=== PATIENT | female | born 1990 | race Caucasian/White ===

== ENCOUNTER 2024-08-14 13:30 | Emergency (ER) | payer OTHER, SELFPAY ==
--- NOTE | 2024-08-14 14:05 | EDPHYS ---
Physician Documentation [facility] Name: Rere Rouse Age: 34 yrs Sex: Female : 1990 Arrival Date: 08/14/2024 Time: 13:30 Bed IW3 Private MD: ED Physician César Gomez HPI: 08/14 14:01 This 34 yrs old Female presents to ER via Unassigned with complaints of Headache - and kb work note. 14:01 Pt is a 34 year old female who presents for headache that started 4 days ago. States kb she had vomiting and diarrhea as well, but that has resolved. States she missed work yesterday and today so she came in to get a note. Reports headache comes and goes. Denies visual changes, dizziness, chest pain. Reports daughter had vomiting and diarrhea as well. 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 - Infectious Disease History:: Denies. - Social history:: Smoking status: unknown. ROS: 14:01 Constitutional: As per HPI kb Exam: 14:03 Constitutional: This is a well developed, well nourished patient who is awake, alert, kb and in no acute distress. Head/Face: Normocephalic, atraumatic. ENT: Moist Mucous membranes Cardiovascular: Regular rate Respiratory: Respirations even and unlabored. No increased work of breathing. Talking in full sentences Abdomen/GI: Soft, non-tender. No distention Skin: Warm, dry with normal turgor. Normal color. MS/ Extremity: Pulses equal, no cyanosis. Neurovascular intact. Full, normal range of motion. Neuro: Awake and alert, GCS 15, oriented to person, place, time, and situation. Vital Signs: 14:29 BP 107 / 71; Pulse 72; Resp 18; Temp 99.1(O); Pulse Ox 99% on R/A; Pain 9/10; cm10 14:29 Pain Scale: Adult cm10 [place] Coma Score: 14:03 Eye Response: spontaneous(4). Motor Response: obeys commands(6). Verbal Response: kb oriented(5). Total: 15. MDM: 13:34 Medical Screening Exam initiated kb 14:03 Differential diagnosis: migraine, viral illness, dehydration, electrolyte abnormality. kb Data reviewed: vital signs, nurses notes. Test considered but Not performed: Labs: cbc, cmp considered but pt states she prefers a shot for the headache and to go home. States she will hydrate at home, just needs a note. Counseling: I had a detailed discussion with the patient and/or guardian regarding the historical points, exam findings, and any diagnostic results supporting the discharge/admit diagnosis, the need for outpatient follow up, a family practitioner, to return to the emergency department if symptoms worsen or persist or if there are any questions or concerns that arise at home. Administered Medications: 14:29 Drug: Ketorolac IM 30 mg IM once Route: IM; Site: right vastus lateralis; cm10 14:33 Follow up: Response: Medication administered at discharge. cm10 Disposition Summary: 08/14/24 14:04 Discharge Ordered Notes: Location: Home kb Condition: Stable kb Diagnosis - Headache kb - Encounter for issue of other medical certificate - work note kb Followup: kb - With: Emergency Department - When: As needed - Reason: Worsening of condition Followup: kb - With: Private Physician - When: 2 - 3 days - Reason: Recheck today's complaints, Continuance of care, Re-evaluation by your physician Discharge Instructions: - Discharge Summary Sheet kb - General Headache Without Cause, [id number] kb Forms: - Work release form kb - Medication Reconciliation Form kb - Antibiotic Education kb - Prescription Opioid Use kb - Patient Portal Instructions kb - Leadership Thank You Letter kb Signatures: Tena Wing FNP-C FNP-Ckb Martinez, Clarissa, RN RN cm10 Corrections: (The following items were deleted from the chart) 14:03 14:01 Pt is a 34 year old female who presents for headache that started 4 days ago. kb States she had vomiting and diarrhea as well, but that has resolved. States she missed work yesterday and today so she came in to get a note. Reports headache comes and goes. Denies visual changes, dizziness, chest pain. . kb
[2024-08-14] MEDS ORDERED: KETOROLAC 30 MG/ML INJ ONE (14:22)
--- NOTE | 2024-08-14 14:34 | ER ---
Nurse's Notes [facility] Name: Rere Rouse Age: 34 yrs Sex: Female : 1990 Arrival Date: 08/14/2024 Time: 13:30 Bed IW3 Private MD: Diagnosis: Headache;Encounter for issue of other medical certificate-work note Presentation: 08/14 14:29 Chief complaint: Patient states: Intermittent headache over the last 3 days. Pt states cm10 that coughing makes the pain worse. Coronavirus screen: Client denies travel out of the [place] in the last 14 days. Ebola Screen: Patient denies travel to an Ebola-affected area in the 21 days before illness onset. No symptoms or risks identified at this time. Initial Sepsis Screen: Does the patient meet any 2 criteria? No. Patient's initial sepsis screen is negative. Does the patient have a suspected source of infection? No. Patient's initial sepsis screen is negative. Risk Assessment: Do you want to hurt yourself or someone else? Patient reports no desire to harm self or others. Onset of symptoms was August 14, 2024. 14:29 Method Of Arrival: Ambulatory cm10 14:29 Acuity: ROBER 3 cm10 Triage Assessment: 14:31 Headache History: The patient has had previous headaches. General: Appears in no cm10 apparent distress. comfortable, Behavior is calm, cooperative. Pain: Complains of pain in head Pain currently is 9 out of 10 on a pain scale. Pain began 2-3 days ago. Also complains of no other associated symptoms. Neuro: No deficits noted. Level of Consciousness is awake, alert, obeys commands, Oriented to person, place, time, situation, Appropriate for age Reports headache. 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 - Infectious Disease History:: Denies. - Social history:: Smoking status: unknown. Screenin:31 [facility] ED Fall Risk Assessment (Adult) History of falling in the last 3 months, cm10 including since admission No falls in past 3 months (0 pts) Confusion or Disorientation No (0 pts) Intoxicated or Sedated No (0 pts) Impaired Gait No (0 pts) Mobility Assist Device Used No (0 pt) Altered Elimination No (0 pt) Score/Fall Risk Level 0 - 2 = Low Risk Oriented to surroundings, Maintained a safe environment, Hourly rounding (assess needs \T\ fall precautionary measures) done. Abuse screen: Denies threats or abuse. Denies injuries from another. Nutritional screening: No deficits noted. Tuberculosis screening: No symptoms or risk factors identified. Vital Signs: 14:29 BP 107 / 71; Pulse 72; Resp 18; Temp 99.1(O); Pulse Ox 99% on R/A; Pain 9/10; cm10 14:29 Pain Scale: Adult cm10 [place] Coma Score: 14:03 Eye Response: spontaneous(4). Motor Response: obeys commands(6). Verbal Response: kb oriented(5). Total: 15. ED Course: 13:33 Patient arrived in ED. ra3 13:34 Tena Wing FNP-C is [facility]. kb 13:34 César Gomez MD is Attending Physician. kb 14:30 Triage completed. cm10 14:31 Arm band placed on right wrist. Patient placed in waiting room. cm10 14:31 Patient has correct armband on for positive identification. Provided Education on: cm10 Follow-up instructions. Cardiac monitoring not applicable on this patient. 14:32 No provider procedures requiring assistance completed. Patient did not have IV access cm10 during this emergency room visit. Administered Medications: 14:29 Drug: Ketorolac IM 30 mg IM once Route: IM; Site: right vastus lateralis; cm10 14:33 Follow up: Response: Medication administered at discharge. cm10 Medication: 14:31 VIS not applicable for this client. cm10 Outcome: 14:04 Discharge ordered by . kb 14:32 Discharged to home ambulatory, cm10 14:32 Condition: good 14:32 Discharge instructions given to patient, Instructed on discharge instructions, follow up and referral plans. Demonstrated understanding of instructions, follow-up care, 14:33 Patient left the ED. cm10 Signatures: Tena Wing FNP-C FNP-Ckb Martinez, Clarissa, RN RN cm10 Alis Ventura ra3
[2024-08-14 14:39] VITALS: BP 107/71; TEMP 99.1; O2SAT 99
== END 2024-08-14 14:33 | disposition home or self-care (01) ==
LOC: ER 13:30
DX: R51.9 Headache, unspecified (principal); Z02.79 Encounter for issue of other medical certificate
CPT/HCPCS: 96372; 99284

== ENCOUNTER 2025-01-10 10:14 | Emergency (ER) | payer OTHER, SELFPAY ==
--- OUTSIDE RECORDS SUMMARY | 2025-01-10 10:21 | XMS REPORT | Continuity of Care Document ---
Author Name Unknown Address [address] [facility] [place] [address] [facility] Address [address] [place] [address] Care Team Providers Care Investigations Consultant Name Role Phone KENDAL SHERIDAN Primary Care Physician Dilip Vasquez Attending Clinician Unavailable Hillary Rodriguez Attending Clinician Madai Dewey Spence Attending Clinician Unavailable Jalil Juan Attending Clinician Unavailable KENDAL SHERIDAN Attending Clinician UnavailChelsy Flores Attending Clinician Unavailable Kendal Yu Attending Clinician [phone] [facility] Admitting Clinician Unavaila ble Physician, No Primary or Family Admitting Clinic cha Unavailable Payers Payer Name Policy Type Policy Number Effective Date Expirati on Date Source Problems Condition Name Condition Details Condition Category Status Onset Date Resolution Date Last Treatment Date Treating Clinician Comments Source ASCUS with positive high risk HPV cervical ASCUS with positive high risk HPV cervical Disease Active 2017-10 0 00:00: 00 Overview: No LEATHA noted. Will need co-testin g repeat in 12 months (06/2019). [facility] BMI 39.0-39.9, adult BMI 39.0-39.9, adult Disease Active 06-22 00:00: 00 [facility] Allergies, Adverse Reactions, Alerts Allergy Name Allergy Type Status Severity Reaction(s) Onset Date Inactive Date Treating Clinician Comments Source No Known Allergie s DA Active U 2020-10 00:00: 00 [facility] No Known Allergie s DA Active U 11-29 00:00: [address] [facility] NO KNOWN ALLERGIE S Drug Class Active [facility] Social History Social Habit Start Date Stop Date Quantity Comments Source History of tobacco use 1998-06-22 00:00:00 Cigarette Smoker [facility] Sex Assigned At [facility] Cigarettes smoked current (pack per day) - Reported 2018-09-21 00:00:00 2018-09-21 00:00:00 [facility] Alcohol intake 2018-09-21 00:00:00 2018-09-21 00:00:00 [facility] Alcohol Comment 2018-06-22 00:00:00 2018-06-22 00:00:00 social [facility] Smoking Status Start Date Stop Date Source Current every day smoker 2018-09-21 00:00:00 [facility] Medications Ordered Medication Name Filled Medication Name Start Date Stop Date Current Medication? Ordering Clinician Indication Dosage Frequency Signature (SIG) Comments Components Source albuterol (PROAIR HFA) 90 mcg/actuati on inhaler 2017-10 00:00: 00 Yes [id number] 2{puff} Inhale 2 Puffs every 4 (four) hours as needed for Wheezing or Shortness of Breath. [facility] Encounters Start Date/Time End Date/Time Encounter Type Admission Type Attending Clinicians Care Facility Care Department Encounter ID Source 2022-11-13 07:38:00 2022-11-13 07:47:00 Emergency EM Dilip Terry [facility] [id number] 12 [facility] 2022-09-11 08:40:00 2022-09-11 09:52:00 Emergency EM Hillary Rodriguez [facility] [id number] 68 [facility] 2022-08-09 11:41:48 2022-08-09 11:41:48 Outpatient [facility] [id number] Alexi Weber 2022-02-21 12:43:00 2022-02-21 15:24:00 Emergency EM Dewey Priest [facility] AERS [id number] 63 [facility] 2022-02-21 12:43:00 2022-02-21 15:24:00 Emergency EM Dewey Priest [facility] [id number] [facility] 2021-10-25 15:39:00 2021-10-25 16:30:00 Emergency EM Jalil Juan [facility] AERS [id number] [facility] 2021-10-15 13:00:00 2021-10-15 13:00:00 Outpatient KENDAL JO [facility] [id number] [facility] 2021-09-09 10:31:00 2021-09-09 11:06:00 Emergency EM Jalil Juan [facility] [id number] 86 [facility] 2021-08-13 13:00:00 2021-08-13 13:00:00 Outpatient KENDAL JO [facility] [id number] [facility] 2021-06-19 13:00:00 2021-06-19 13:00:00 Outpatient KENDAL SHERIDAN [facility] [id number] [facility] 2021-05-27 09:38:00 2021-05-27 13:40:00 Emergency EM Chelsy Church [facility] [id number] [facility] 2020-04-04 00:00:00 2020-04-04 00:00:00 Telephone Kendal Sheridan [facility] RETAIL ASSISTANT MANAGER [facility] [id number] [facility] 2020-04-04 00:00:00 2020-04-04 00:00:00 Telephone Kendal Sheridan [facility] RET[employer] ASSISTANT MANAGER [facility] [id number] Results Test Description Test Time Test Comments Results Resul t Comments Source BREAST ULTRASOUND BILATERAL 2022-06-03 15:39:29 Name: Zurdo : 1990 Sex: F - BREAST ULTRASOUND BILATERALCOMPLETE ULTRASOUND OF BOTH BREASTS AND AXILLA: 2CLINICAL: Bilateral breast pain. Comparison is made to exam dated 06/03/2022 mammogram - [facility]. Color flow and real-time ultrasound of both breasts four quadrants, retroareolar, and axilla regions and clinical breast exam performed. No significant abnormalities were seen sonographically in either breast or either axilla. Clinical breast exam unremarkable. IMPRESSION: NEGATIVE There is no sonographic evidence of malignancy. Resume annual screening mammography in one year. (06/04/2023) Rachel Gill M.D. dm/:06/03/2022 15:39:29 Entry: bb - 06/03/2022 19:32:36Imaging Technologist: Kate GARCIA, [facility] sent: BIRADS 1-2 Combo FU Letter Ultrasound BI-RADS: 1 Negative DIAG MAMM BILATERAL SAMM CAD DIGITAL 2022-06-03 15:38:12 Name: Zurdo : 1990 Sex: F - DIAG MAMM BILATERAL SAMM CAD DIGITALBILATERAL FIRST EVER DIGITAL DIAGNOSTIC MAMMOGRAM 3D/2D WITH CAD: 06/03/2022LINICAL: Family history of breast cancer. Bilateral breast pain, nipple itching and discoloration. Digital breast tomosynthesis was performed in addition to routine CC and MLO views. Current mammographic images were evaluated by [employer] CAD (computer-aided detection) software. No prior exams were available for comparison. The tissue of both breasts is predominantly fatty. No suspicious mass, architectural distortion, malignant type calcification, or lymph node abnormality detected. IMPRESSION: BENIGNBilateral ultrasound pending for additional evaluation. There is no mammographic evidence of malignancy. Rachel mejia/caio:06/03/2022 15:38:12 Entry: bb - 06/03/2022 19:32:20Imaging Technologist: Shyann GARCIA, [facility] BI-RADS: [address]/NG, TMA, [id number] 17:33:19* Test Item Value Reference Range Interpretation Comme nts GONORRHEA, TMA (test code = 55809) NEGATIVE NEGATIVE Assay methodolog y is nucleic acid amplification by loading unit tool setter mediated amplification (TMA) utilizing the Aptima Combo 2 Assay. CHLAMYDIA, TMA (test code = 27487) NEGATIVE NEGATIVE Assay methodolog y is nucleic acid amplification by loading unit tool setter mediated amplification (TMA) utilizing the Aptima Combo 2 Assay. UNLESS OTHERWISE INDICATED, ALL TESTING PERFORMED [facility] [address] [place] [address] SIGNAL TOWER OPERATOR: IVANIA YUSUF M.D. [place] NUMBER [id number] [facility] [place]. [id number] HPV HIGH RISK WITH GENOTYPE, [id number] 15:05:16* Test Item Value Reference Range Interpretation Comme nts HPV HIGH RISK INTERP (test code = 87824) NEGATIVE NEGATIVE HPV 16 (test code = 64571) NEGATIVE HPV 18 (test code = 90837) NEGATIVE HPV, HR, OTHER GENOTYPES (test code = 71829) NEGATIVE Testing methodol ogy is real-time PCR utilizing hydrolysis probes with the Reid Derrick 4800 system. The test individually detects genotypes 16 and 18, as well as the other 12 high risk types (31,33,35,39,45,51,52,56 ,58,59,66,68). The expected result is negative. A negative result does not rule out the presence of HPV not included in the genotype set, a low level of infection or specimen sampling error. CBC W/AUTO [id number] 14:13:00* Test Item Value Reference Range Interpretation Comme nts WHITE BLOOD CELL (test code = WBC) 8.4 K/uL 3.5-11.0 N RED BLOOD CELL (test code = RBC) 3.94 M/uL 3.54-5.02 N HEMOGLOBIN (test code = HGB) 13.1 GM/DL 11.0-15.0 N HEMATOCRIT (test code = HCT) 36.6 % 37.0-47.0 L MEAN CELL VOLUME (test code = MCV) 92.9 fL 81.0-99.0 N MEAN CELL HGB (test code = MCH) 33.2 pg 27.0-31.0 H MEAN CELL HGB CONCETRATION ( test code = MCHC) 35.8 GM/DL 33.0-37.0 N RED CELL DISTRIBUTION WIDTH CV (test code = RDW) 13.8 % 11.5-14.5 N PLATELET COUNT (test code = PLT) 228 K/mm3 150-400 N MEAN PLATELET VOLUME (test c ode = MPV) 10.3 FL 8.8-13.1 N NEUTROPHIL % (test code = NT%) 71.2 % 40.0-76.0 N LYMPHOCYTE % (test code = LY%) 21.8 % 15.0-40.0 N MIXED % (test code = MX%) 7.0 % 3.0-15.0 N NEUTROPHIL # (test code = NT#) 6.0 K/uL 1.8-7.6 N LYMPHOCYTE # (test code = LY#) 1.8 K/uL 1.0-3.8 N MIXED # (test code = MX#) 0.6 k/mm3 0.1-0.8 N TROPONIN-I [id number] 13:36:00* Test Item Value Reference Range Interpretation Comme nts TROPONIN-I RAPID (test code = TROPIRAP) 0.00 ng/mL 0.00-0.08 N Performed by cer tified foreman or supervisor and operator at [facility] Negative: <= 0.08 Positive: >= 0.09An elevated troponin value alone is not sufficient todiagnose a myocardial infarction. Rather, the patient sclinical presentation (history, physical exam) and ECGshould be used in conjunction with troponin in thediagnostic evaluation of suspected myocardial infarction. Aserial sampling protocol is recommended to facilitate the identification of temporal changes in troponin levels characteristic of [place]. LIVER [id number] 13:34:00* Test Item Value Reference Range Interpretation Comme nts TOTAL PROTEIN (test code = PROT) 5.7 GM/DL 5.0-8.0 N Performed by certified foreman or supervisor and operator at [facility] ALBUMIN (test code = ALB) 3.2 g/dL 3.4-5.0 L BILIRUBIN TOTAL (test code = BILT) 0.5 MG/DL 0.0-1.0 N SGOT/AST (test code = AST) 16 IUnit/L 15-37 N SGPT/ALT (test code = ALT) 22 IUnit/L 30-65 L GAMMA GLUTAMYL TRANSPEPTIDASE (test code = GGT) 15 UNITS/L 5-85 N ALKALINE PHOSPHATASE TOTAL (test code = ALKP) 66 IUNIT/L 20-125 N AMYLASE (test code = SHIRLEY) 32 UNITS/L 25-125 N BASIC METABOLIC [id number] 13:24:00* Test Item Value Reference Range Interpretation Comme nts SODIUM (test code = NA/ABG) 142 MEQ/L 134-147 N POTASSIUM (test code = K/ABG) 3.7 MEQ/L 3.4-5.0 N CHLORIDE (test code = CL/ABG) 104 MEQ/L 100-108 N CREATININE ABG (test code = CREAABG) 0.8 mg/dL 0.6-1.0 N POC IONIZED CALCIUM (test co de = POCCA) 1.17 MMOL/L 1.12-1.32 N POC GLUCOSE (test code = POCGLU) 111 MG/DL Novel Coronavirus [id number] 13:28:00* Test Item Value Reference Range Interpretation Comme nts Novel Coronavirus 2019 Inhouse (test code = [id number]) Negative Negative Positive resul ts are indicative of the presence teNFLM-LxM-8 RNA, clinical correlation with patient historyand other diagnostic information is necessary to determinepatient infection status. Positive results do not rule outbacterial infection or co-infection with other viruses. Negative results do not preclude SARS-CoV-2 infection andshould not be used as the sole basis for patient managementdecisions. Negative results must be combined with otherclinical observations, patient history, and epidemiologicalinformation . Detection of SARS-CoV-2 RNA may be affected bysample collection methods, storage conditions, and/or stageof infection. Viral RNA mutations, vaccinations, antiviraltherapeutics, antibiotics, chemotherapeutic orimmunosuppressant drugs have not been evaluated for effectson detection. Results are for the identification of SARS-CoV-2 RNA usingreal-time (RT) polymerase chain reaction (PCR) technologyfor the qualitative detection of nucleic acids from gmlXZMU-YtP-1 virus and diagnosis of SARS-CoV-2 virusinfection. It is an Emergency Use Authorization (EUA) testauthorized by the U.S. FDA. INFLUENZA A B [id number] 16:17:00* Test Item Value Reference Range Interpretation Comme nts INFLUENZA A POC (test code = INFLAAG) NEGATIVE NEGATIVE INFLUENZA B POC (test code = INFLBAG) NEGATIVE NEGATIVE Performed by rony wayne foreman or supervisor and operator at [facility] Influenza A&B assay is a rapid molecular in vitro diagnostic test utilizing an isothermal nucleic acidamplification technology for the qualitative detectionand discrimination of influenza A and B viral RNA. AG STREP GROUP A (THROAT)2021-10-25 16:12:00* Test Item Value Reference Range Interpretation Comme nts AG STREP GROUP A (THROAT) (test code = STREPA) NEGATIVE Negative Performed by rony king at [facility] Strep-A is a rapid, instrument-based, molecular invitro diagnostic test utilizing isothermal nucleic acidamplification technology for the qualitative detection ofStreptococcus pyogenes - XR CHEST 2 [id number] 00:00:00 [facility] 1990 Sex: F FAX: Jalil Juan MD [place]: [place] St: PRE Name: VICZURDO Rafael FSED : 1990 Age/S: 31/F [address] [facility] Unit #: [id number] Loc: [place] [address] Phys: Jalil Juan MD Acct: [id number] Dis Date: Status: PRE ER PHONE #: Exam Date: 10/25/2021 1610 FAX #: Reason: COUGH DYSPNEA EXAMS: CPT CODE: [id number] XR CHEST 2 V 75626 PROCEDURE INFORMATION: Exam: XR Chest Exam date and time: 10/25/2021 3:55 PM Age: 31 years old Clinical indication: Cough; Additional info: Cough dyspnea TECHNIQUE: Imaging protocol: XR of the chest. Views: 2 views. PA and Lateral COMPARISON: CR XR CHEST 2 V 11/29/2014 1:27 PM FINDINGS: Lungs: There are normal lung volumes without consolidation or interstitial oppacities. Ple ural spaces: Unremarkable. No pleural effusion. No pneumothorax. Heart/Mediastinum: The heart size is normal. The pulmonary vasculature is normal. The mediastinal contour is normal. The trachea is midline. Bones/joints: No acute abnormality seen. IMPRESSION: No acute cardiopulmonary findings Elec tronically Signed by Loc Olivo on 10/25/2021 at 1618 Reported and signed by: Alexi Olivo M.D. CC: Jalil Juan MD Technologist: Kulwant Covington, RT(R)(CT) Trnscrd Date/Time/By: 10/25/2021 (697) : By: ErnieL Orig Print D/T: S: 10/25/2021 (6710) PAGE 1 Signed ReportBASIC METABOLIC [id number] 10:13:00* Test Item Value Reference Range Interpretation Comme nts SODIUM (test code = NA/ABG) 138 MEQ/L 134-147 N POTASSIUM (test code = K/ABG) 4.1 MEQ/L 3.4-5.0 N CHLORIDE (test code = CL/ABG) 101 MEQ/L 100-108 N CREATININE ABG (test code = CREAABG) 0.8 mg/dL 0.6-1.0 N POC IONIZED CALCIUM (test co de = POCCA) 1.19 MMOL/L 1.12-1.32 N POC GLUCOSE (test code = POCGLU) 92 MG/DL - DUP VEIN UNI/[id number] 00:00:00 [facility] : 1990 Sex: F Name: UZRDO HANKINS [place] : 1990 Age/S: 31 / F [address] [place] [address] Unit #: [id number] Loc: [place] [address] Phys: Chelsy Church MD Acct: [id number] Dis Date: Status: REGER PHONE #: [phone] Exam Date: 05/27/2021 [facility] FAX #: [phone] Reason: acute R calf pain EXAMS: CPT CODE: [id number] DUP VEIN UNI/LTD 93732 PROCEDURE INFORMATION: Exam: US Duplex Right Lower Extremity Veins, Limited Exam date and time: 05/27/2021 12:22 PM Age: 31 years old Clinical indication: Pain; Leg, lower; Right; Additional info: Acute R calf pain TECHNIQUE: Imaging protocol: Real-time Duplex ultrasound of the Right Lower Extremity with 2-D lay scale, color Doppler flow and spectral waveform analysis with image documentation. Limited exam was focused on the right lower extremity veins. COMPARISON: No relevant prior studies available. FINDINGS: Right deep veins: The common femoral, femoral, popliteal, visualized calf and ankle veins are patent without thrombus. Right superficial veins: Unremarkable. Saphenofemoral junction is patent without thrombus. Soft tissues: Unremarkable. IMPRESSION: No evidence of deep vein thrombosis. at 1236 Reported and signed by: Roxane Pablo D.O. CC: Chelsy Church MD Technologist: Cassandra Vincent RDMS(AB)(OB) Trnscb Date/Time: 05/27/2021 (1236) [email or web address] PAGE 1 Signed Report - CT HEAD/BRAIN W/O [id number] 16:14:00Name: ZURDO HANKINS [place] : 1990 Age/S: 29 / F [address] [facility] Unit #: [id number] Loc: [place] [address] Phys: Raheel Rico MD Acct: [id number] Dis Date: Status: REGER PHONE #: [phone] Exam Date: 04/27/2019 1609 FAX #: Reason: headache EXAMS: CPT: [id number] CT HEAD/BRAIN W/O CONT 92140 CLINICAL HISTORY: Headaches, arrhythmia. CT brain, unenhanced. Reformatted sagittal and coronal images. COMPARISON: None. Automated exposure control, iterative reconstruction technique, and/or adjustment of mA and/or kV according to patient's size was utilized for optimum radiation dose reduction. An unenhanced study of the brain was performed. Symmetric cortical pattern found. No cortical hemorrhage . No hemorrhage, mass effect, or findings of CVA can be seen. No evidence of ventricular shift. The posterior fossa structures appear to be intact. Bone window settings do not show any evidence of skull fracture. Visualized sinuses appear to be clear. . IMPRESSION: No acute appearing intracranial abnormality. Location: U19 at 1614 Reported and signed by: Sumeet Martell M.D. CC: Raheel Rioc MD Technologist:Brianda Martinez RT(R)(CT)(MRI) CTDI: DLP: Trnscb Date/Time: 04/27/2019 (7134) t.[email or web address] Orig Print D/T: S: 04/27/2019 (1980) PAGE 1 Signed ReportHCG [id number] 16:04:00* Test Item Value Reference Range Interpretation Comme nts HCG POC (test code = HCGPOC) <5 IU/L <5.0 N <5.0 IU/L NEGATI VE5.0 - 25.0 IU/L INDETERMINATE>25.0 POSITIVE Detection of low levels of hCG does not rule out .Because hCG values double approximately every 48 hours in anormal , patients with low levels of hCG should beresampled and retested after 48 hours BASIC METABOLIC [id number] 15:10:00* Test Item Value Reference Range Interpretation Comme nts SODIUM (test code = NA) 142 mmol/L 134-147 N POTASSIUM (test code = K) 4.1 mmol/L 3.4-5.0 N CHLORIDE (test code = CL) 107 mmol/L 100-108 N CARBON DIOXIDE (test code = CO2) 32 mmol/L 21-32 N ANION GAP (test code = GAP) 3.0 GAP calc 4.0-15.0 L GLUCOSE (test code = GLU) 87 MG/DL 70-110 N BLOOD UREA NITROGEN (test code = BUN) 9 MG/DL 7-18 N GLOMERULAR FILTRATION RATE (test code = GFR) >=60 max estimate estGFR >60 CREATININE (test code = CREAT) 0.8 MG/DL 0.6-1.0 N CALCIUM (test code = CA) 8.5 MG/DL 8.5-10.1 N CBC W/AUTO [id number] 14:45:00* Test Item Value Reference Range Interpretation Comme nts WHITE BLOOD CELL (test code = WBC) 10.8 K/mm3 3.5-11.0 N RED BLOOD CELL (test code = RBC) 4.31 M/mm3 4.70-6.10 L HEMOGLOBIN (test code = HGB) 14.1 G/DL 10.4-14.9 N HEMATOCRIT (test code = HCT) 41.6 % 31.5-44.1 N MEAN CELL VOLUME (test code = MCV) 96.5 Fl 84.5-98.6 N MEAN CELL HGB (test code = MCH) 32.7 pg 27.0-34.2 N MEAN CELL HGB CONCETRATION ( test code = MCHC) 33.9 G/DL 31.5-34.0 N RED CELL DISTRIBUTION WIDTH (test code = RDW) 13.3 SD 11.5-14.5 N PLATELET COUNT (test code = PLT) 242.0 K/mm3 150-450 N MEAN PLATELET VOLUME (test c ode = MPV) 9.40 fL 7.0-10.5 N NEUTROPHIL % (test code = NT%) 64.7 % 40-76 N LYMPHOCYTE % (test code = LY%) 24.6 % 20.5-51.1 N MONOCYTE % (test code = MO%) 8.6 % 1.7-9.3 N EOSINOPHIL % (test code = EO%) 2.0 % 0.0-6.0 N BASOPHIL % (test code = BA%) 0.1 % 0.0-2.0 N NEUTROPHIL # (test code = NT#) 6.96 K/mm3 1.8-7.6 N LYMPHOCYTE # (test code = LY#) 2.7 K/mm3 0.6-3.2 N MONOCYTE # (test code = MO#) 0.9 K/mm3 0.3-1.1 N EOSINOPHIL # (test code = EO#) 0.2 K/mm3 0.0-0.4 N BASOPHIL # (test code = BA#) 0.0 K/mm3 0.0-0.1 N MANUAL DIFF REQUIRED (test c ode = MDIFF) NO DIFF/SCN CRITERIA CBC W/AUTO [id number] 11:09:00* Test Item Value Reference Range Interpretation Comme nts WHITE BLOOD CELL (test code = WBC) 12.0 K/mm3 3.5-11.0 H RED BLOOD CELL (test code = RBC) 4.37 M/mm3 4.70-6.10 L HEMOGLOBIN (test code = HGB) 14.4 G/DL 10.4-14.9 N HEMATOCRIT (test code = HCT) 40.8 % 31.5-44.1 N MEAN CELL VOLUME (test code = MCV) 93.4 Fl 84.5-98.6 N MEAN CELL HGB (test code = MCH) 33.0 pg 27.0-34.2 N MEAN CELL HGB CONCETRATION ( test code = MCHC) 35.3 G/DL 31.5-34.0 H RED CELL DISTRIBUTION WIDTH (test code = RDW) 13.9 SD 11.5-14.5 N PLATELET COUNT (test code = PLT) 226.0 K/mm3 150-450 N MEAN PLATELET VOLUME (test c ode = MPV) 10.00 fL 7.0-10.5 N NEUTROPHIL % (test code = NT%) 72.4 % 40-76 N LYMPHOCYTE % (test code = LY%) 19.6 % 20.5-51.1 L MONOCYTE % (test code = MO%) 6.5 % 1.7-9.3 N EOSINOPHIL % (test code = EO%) 1.3 % 0.0-6.0 N BASOPHIL % (test code = BA%) 0.2 % 0.0-2.0 N NEUTROPHIL # (test code = NT#) 8.68 K/mm3 1.8-7.6 H LYMPHOCYTE # (test code = LY#) 2.4 K/mm3 0.6-3.2 N MONOCYTE # (test code = MO#) 0.8 K/mm3 0.3-1.1 N EOSINOPHIL # (test code = EO#) 0.2 K/mm3 0.0-0.4 N BASOPHIL # (test code = BA#) 0.0 K/mm3 0.0-0.1 N MANUAL DIFF REQUIRED (test c ode = MDIFF) NO DIFF/SCN CRITERIA - XR FOOT 3+V [id number] 19:21:00[facility]: [facility] [place] : 1990 Age/S: 28 / F [address] [facility] Unit #: [id number] Loc: [place] [address] Phys: Dewey Priest MD Acct: [id number] Dis Date: Status: REG ER PHONE #: [phone] Exam Date: 12/10/2018 190 FAX #: Reason: pain EXAMS: CPT: [id number] XR FOOT 3+[place] [address] Fluoro Time: DAP (Gy m2): Air Kerma (mGy): EXAM: - XR FOOT 3+V LT HISTORY: Pain. COMPARISON: None available time of interpretation. FINDINGS: AP, oblique, and lateral view of the left foot is provided. There is no acute fracture or malalignment. The osseous structures are intact. There is a tiny calcaneal enthesophyte in plantar aspect. IMPRESSION: No acute osseous abnormality. at 1921 Reported and signed by: Hernando Maloney M.D. CC: Mansoor Galan MAGICIAN HELPER; Dewey Priest MD PAGE 1 Signed Report Name: ZURDO ORDONEZ [place] : 1990 Age/S: 28 / F [address] [facility] Unit #: [id number] Loc: [place] [address] Phys: Dewey Priest MD Acct: [id number] Dis Date: Status: REG ER PHONE #:[phone] Exam Date: 12/10/2018 190 FAX #: Reason: pain EXAMS: CPT: [id number] XR FOOT 3+[place] [address] Fluoro Time: DAP (Gy m2): Air Kerma (mGy): (Continued) Technologist: Brianda Mratinez RT(R)(CT)(MRI) Trnscb Date/Time: 12/10/2018 (1920) [email or web address] Orig Print D/T: S: 12/10/2018 (1923) PAGE 2 Signed Report- XR ANKLE 3+V [id number] 19:20:00Name: ZURDO HANKINS [place] : 1990 Age/S: 28 / F [address] [place] [address] Unit #: [id number] Loc: [place] [address] Phys: Dewey Priest MD Acct: [id number] Dis Date: Status: REG ER PHONE #: [phone] Exam Date: 12/10/20181901 FAX #: Reason: pain EXAMS: CPT: [id number] XR ANKLE 3+[place] [address] Fluoro Time: DAP (Gy m2): Air Kerma (mGy): EXAM: - XR ANKLE 3+V LT HISTORY: Pain. COMPARISON: None available time of interpretation. FINDINGS: AP, oblique, and lateral view of the leftankle is provided. There is no acute fracture or malalignment. The joint spaces are preserved. IMPRESSION: No acute osseous abnormality. Consider additional evaluation as needed. at 1920 Reported and signed by: Hernando Maloney M.D. CC: Mansoor Galan MAGICIAN HELPER; Dewey Priest MD PAGE 1 Signed Report Name: ZURDO HANKINS [place] : 1990 Age/S: 28 / F [address] [place] [address] Unit #: [id number] Loc: [place] [address] Phys: Dewey Priest MD Acct: [id number] Dis Date: Status: REG ER PHONE #: [phone] Exam Date: 12/10/20181901 FAX #: Reason: pain EXAMS: CPT: [id number] XR ANKLE 3+[place] [address] Fluoro Time: DAP (Gy m2): Air Kerma (mGy): (Continued) Technologist: Brianda Martinez RT(R)(CT)(MRI) Trnscb Date/Time: 12/10/2018 (1919) [email or web address] Orig Print D/T: S: 12/10/2018 (1922) PAGE 2 Signed Report Notes Date/Time Note Provider Source 2022-11-13 07:43:00 [facility] [facility] ([facility]) EMERGENCY PROVIDER REPORT REPORT#:[id number] REPORT STATUS: Signed DATE:11/13/22 TIME: 07 PATIENT: ZURDO HANKINS UNIT #: [id number] ROOM/BED: AGE: 32 SEX: F PCP PHYS: No Primary or Family Physician SERVICE AUTHOR: Dilip Terry MD * ALL edits or amendments must be made on the electronic/computer document * HPI-Back Pain Under 40 Free Text HPI Notes Free Text HPI Notes Patient presents to emergency department for lower back pain for the past 2 days. 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 No fever chills nausea vomit diarrhea chest pain shortness of breath abdominal pain. No bowel or bladder incontinence no urinary retention. Nothing makes symptoms better stretching and bending makes symptoms worse. General Initial Greet Date/Time 11/13/22 0740 Presentation Chief Complaint Pain, lumbar )( Sudden in Onset? Yes Risk-Back Pain Under 40 Risk Stratification Thoracic Aortic Dissection Risk factors reviewed Review of Systems ROS Statements All systems rev neg except as marked. Basic Review of Systems Basic ROS EYES: No redness, ENT: No sore throat, SKIN: No rash Focused Review of Systems Constitutional Denies: Chills, Fatigue, Fever, Malaise. Respiratory Denies: Cough, non-productive, Cough, productive, Shortness of breath. Cardiovascular Denies: Chest pain, Dyspnea on exertion, Edema, Orthopnea. Musculoskeletal Reports: Back pain. Denies: Extremity pain, Extremity swelling, Joint pain, Joint swelling. Past Medical History - Adult Stated Complaint BACK PAIN Allergies Coded Allergies: No Known Allergies (11/29/14) Home Medications Active Scripts KETOROLAC (TORADOL) 10 MG PO Q6H PRN PRN PAIN KETOROLAC (TORADOL) 10 MG PO Q6H PRN PRN PAIN #20 TABS Prov: 05/27/21 ALBUTEROL (PROAIR HFA 90 MCG/ACT 8.5 GM) 2 PUFF INH RTQ4H PRN PRN DYSPNEA/ WHEEZING ALBUTEROL (PROAIR HFA 90 MCG/ACT 8.5 GM) 2 PUFF INH RTQ4H PRN PRN DYSPNEA/ WHEEZING #8.5 GM Prov: 02/21/22 ONDANSETRON ODT (ZOFRAN ODT) 4 MG PO Q6H PRN PRN NAUSEA/VOMITING ONDANSETRON ODT (ZOFRAN ODT) 4 MG PO Q6H PRN PRN NAUSEA/VOMITING #15 TABS Prov: 02/21/22 DME - NEBULIZER (NEBULIZER) EACH [facility] ASDIR DME - NEBULIZER (NEBULIZER) EACH [facility] [place] ASDIR #1 Prov: 10/25/21 IPRATROPIUM/ALBUTEROL (DUONEB 0.5 MG-3/3ML) 3 ML NEB RTQ4H PRN PRN SHORTNESS OF BREATH/WHEEZING IPRATROPIUM/ALBUTEROL (DUONEB 0.5 MG-3/3ML) 3 ML NEB RTQ4H PRN PRN SHORTNESS OF BREATH/WHEEZING #90 ML Prov: 10/25/21 ALBUTEROL (PROAIR HFA 90 MCG/ACT 8.5 GM) 2 PUFF INH RTQ4H PRN PRN DYSPNEA/ WHEEZING ALBUTEROL (PROAIR HFA 90 MCG/ACT 8.5 GM) 2 PUFF INH RTQ4H PRN PRN DYSPNEA/ WHEEZING #8.5 GM Prov: 10/25/21 PSEUDOEPH/LORATADINE ER (CLARITIN D 120/5 MG 12 HR) 1 TAB PO BID PRN PRN CONGESTION/COLD SYMPTOMS PSEUDOEPH/LORATADINE ER (CLARITIN D 120/5 MG 12 HR) 1 TAB PO BID PRN PRN CONGESTION/COLD SYMPTOMS #15 TABS Prov: 10/25/21 BENZONATATE (TESSALON) 100 MG PO Q8H PRN PRN COUGH BENZONATATE (TESSALON) 100 MG PO Q8H PRN PRN COUGH #30 CAPS Prov: 10/25/21 ONDANSETRON ODT (ZOFRAN ODT) 4 MG PO Q6H PRN PRN NAUSEA/VOMITING ONDANSETRON ODT (ZOFRAN ODT) 4 MG PO Q6H PRN PRN NAUSEA/VOMITING #15 TABS Prov: 10/25/21 DICYCLOMINE (BENTYL) 10 MG PO Q6H PRN PRN ABDOMINAL PAIN/CRAMPING DICYCLOMINE (BENTYL) 10 MG PO Q6H PRN PRN ABDOMINAL PAIN/CRAMPING #30 CAPS Prov: 10/25/21 NAPROXEN (NAPROSYN) 500 MG PO BID PRN PRN PAIN NAPROXEN (NAPROSYN) 500 MG PO BID PRN PRN PAIN #15 TABS Prov: 10/25/21 Past Medical History: Reports: GERD/gastritis (GERD), Hypertension, Dyslipidemia. Denies: Anemia, Congestive heart failure, COPD, Coronary artery disease, Diabetes mellitus, Seizure disorder, Transient ischemic attack. Additional Medical History Anxiety Past Surgical History: Reports: . Alcohol Use Denies EtOH use Drug Use Denies recreational drugs Smoking status for patients 13 years old or older: Never Smoker Other Social History Local resident, Good social support Physical Exam Vital Signs Vital Signs First Documented: Result Date Time Pulse Ox 98 11/13 0738 B/P 132/62 11/13 0738 B/P Mean 85 11/13 0638 O2 Delivery Room air 11/13 737 Temp 98.0 11/13 0638 Pulse 84 11/13 0638 Resp 17 11/13 737 Last Documented: Result Date Time Pulse Ox 98 11/13 0738 B/P 132/62 11/13 0738 B/P Mean 85 11/13 0638 O2 Delivery Room air 11/13 737 Temp 98.0 11/13 0638 Pulse 84 11/13 0638 Resp 17 11/13 0638 Review of Vital Signs Reviewed Basic Physical Exam Basic PE HEAD: Atraumatic/NC, EYES: PERRL, conj clear, ENT: Membranes moist, NECK: Supple, RESP: No resp distress, CV: Reg rate rhythm, EXT: No gross abnormality Focused PE General/Const General/Const Awake, Alert, No acute distress, Well appearing, Well developed MS Back Back Atraumatic Text/Dict Notes Tenderness to palpation right lumbar paraspinal muscles, painful range of motion right lower back Neurologic Neurologic Oriented X3, Speech NL, No motor deficits, No sensory deficits Re-Evaluation MDM Free Text MDM Notes Free Text MDM Notes Patient presents to emergency department for lower back pain. Patient found to have no red flag symptoms for cauda equina syndrome (saddle anesthesia, urinary retention, bowel or bladder incontinence). Patient is to have light duty at work and was prescribed Flexeril and ibuprofen for pain control. Patient discharged in stable condition. Patient Discharge Departure Vital Signs/Condition Vital Signs First Documented: Result Date Time Pulse Ox 98 11/13 737 B/P 132/62 11/13 737 B/P Mean 85 11/13 737 O2 Delivery Room air 11/13 737 Temp 98.0 11/13 737 Pulse 84 11/13 737 Resp 17 11/13 737 Last Documented: Result Date Time Pulse Ox 98 11/13 0638 B/P 132/62 11/13 737 B/P Mean 85 11/13 737 O2 Delivery Room air 11/13 737 Temp 98.0 11/13 737 Pulse 84 11/13 737 Resp 11/13 All vital signs available at the time of this entry have been reviewed. Clinical Impression Clinical Impression Primary Impression: Lumbar strain Disposition Decision Discharge )( Discharged to Home Yes )( Time 07 )( Date 11/13/22 Discharge/Care Plan (Auto) Prescriptions Current Visit Scripts CYCLOBENZAPRINE (FLEXERIL) 10 MG PO Q8H PRN PRN MUSCLE SPASMS/PAIN CYCLOBENZAPRINE (FLEXERIL) 10 MG PO Q8H PRN PRN MUSCLE SPASMS/PAIN #15 TABS IBUPROFEN (MOTRIN) 600 MG PO Q6H PRN PRN PAIN IBUPROFEN (MOTRIN) 600 MG PO Q6H PRN PRN PAIN #30 TABS Patient Instructions ED Back Exercises, Lumbar, ED Back Spasm, No Trauma Referrals Provider Referral: Bernice Pineda MD Address: [address] [place] [address] at 0749 RPT #:[id number] END OF REPORT [facility] 2022-09-11 09:14:00 [facility] ([facility] EMERGENCY PROVIDER REPORT REPORT#:[id number] REPORT STATUS: Signed DATE:09/11/22 TIME: 913 PATIENT: ZURDO HANKINS UNIT #: [id number] ROOM/BED: AGE: 32 SEX: F PCP PHYS: [facility] SERVICE AUTHOR: Hillary Rodriguez MD * ALL edits or amendments must be made on the electronic/computer document * HPI-URI/Cough/Cold Free Text HPI Notes Free Text HPI Notes 32-year-old healthy female presents with URI symptoms. Patient reports chills, fever, myalgias, congestion, cough. Patient reports her also at home with similar symptoms. General Initial Greet Date/Time 09/11/22 0842 Presentation Chief Complaint Cough, non-productive, Fever Review of Systems Focused Review of Systems Constitutional Reports: Chills, Fever, Malaise. Ears/Nose/Throat Reports: Nasal congestion, Sore throat. Respiratory Reports: Cough, non-productive. Denies: Shortness of breath. Additional Review of Systems Musculoskeletal Reports: Myalgia. Past Medical History - Adult Stated Complaint COUGH, CONGESTION, SORE THROAT, CHILLS Allergies Coded Allergies: No Known Allergies (11/29/14) Home Medications Active Scripts KETOROLAC (TORADOL) 10 MG PO Q6H PRN PRN PAIN KETOROLAC (TORADOL) 10 MG PO Q6H PRN PRN PAIN #20 TABS Prov: 05/27/21 ALBUTEROL (PROAIR HFA 90 MCG/ACT 8.5 GM) 2 PUFF INH RTQ4H PRN PRN DYSPNEA/ WHEEZING ALBUTEROL (PROAIR HFA 90 MCG/ACT 8.5 GM) 2 PUFF INH RTQ4H PRN PRN DYSPNEA/ WHEEZING #8.5 GM Prov: 02/21/22 ONDANSETRON ODT (ZOFRAN ODT) 4 MG PO Q6H PRN PRN NAUSEA/VOMITING ONDANSETRON ODT (ZOFRAN ODT) 4 MG PO Q6H PRN PRN NAUSEA/VOMITING #15 TABS Prov: 02/21/22 DME - NEBULIZER (NEBULIZER) EACH [facility] ASD[facility] DME - NEBULIZER (NEBULIZER) EACH [facility] [place] ASDIR #1 Prov: 10/25/21 IPRATROPIUM/ALBUTEROL (DUONEB 0.5 MG-3/3ML) 3 ML NEB RTQ4H PRN PRN SHORTNESS OF BREATH/WHEEZING IPRATROPIUM/ALBUTEROL (DUONEB 0.5 MG-3/3ML) 3 ML NEB RTQ4H PRN PRN SHORTNESS OF BREATH/WHEEZING #90 ML Prov: 10/25/21 ALBUTEROL (PROAIR HFA 90 MCG/ACT 8.5 GM) 2 PUFF INH RTQ4H PRN PRN DYSPNEA/ WHEEZING ALBUTEROL (PROAIR HFA 90 MCG/ACT 8.5 GM) 2 PUFF INH RTQ4H PRN PRN DYSPNEA/ WHEEZING #8.5 GM Prov: 10/25/21 PSEUDOEPH/LORATADINE ER (CLARITIN D 120/5 MG 12 HR) 1 TAB PO BID PRN PRN CONGESTION/COLD SYMPTOMS PSEUDOEPH/LORATADINE ER (CLARITIN D 120/5 MG 12 HR) 1 TAB PO BID PRN PRN CONGESTION/COLD SYMPTOMS #15 TABS Prov: 10/25/21 BENZONATATE (TESSALON) 100 MG PO Q8H PRN PRN COUGH BENZONATATE (TESSALON) 100 MG PO Q8H PRN PRN COUGH #30 CAPS Prov: 10/25/21 ONDANSETRON ODT (ZOFRAN ODT) 4 MG PO Q6H PRN PRN NAUSEA/VOMITING ONDANSETRON ODT (ZOFRAN ODT) 4 MG PO Q6H PRN PRN NAUSEA/VOMITING #15 TABS Prov: 10/25/21 DICYCLOMINE (BENTYL) 10 MG PO Q6H PRN PRN ABDOMINAL PAIN/CRAMPING DICYCLOMINE (BENTYL) 10 MG PO Q6H PRN PRN ABDOMINAL PAIN/CRAMPING #30 CAPS Prov: 10/25/21 NAPROXEN (NAPROSYN) 500 MG PO BID PRN PRN PAIN NAPROXEN (NAPROSYN) 500 MG PO BID PRN PRN PAIN #15 TABS Prov: 10/25/21 Past Medical History: Reports: GERD/gastritis (GERD), Hypertension, Dyslipidemia. Denies: Anemia, Congestive heart failure, COPD, Coronary artery disease, Diabetes mellitus, Seizure disorder, Transient ischemic attack. Additional Medical History Anxiety Past Surgical History: Reports: . Alcohol Use Denies EtOH use Drug Use Denies recreational drugs Smoking status for patients 13 years old or older: Unknown,if ever smoked Other Social History Local resident, Good social support Physical Exam Vital Signs Vital Signs First Documented: Result Date Time Pulse Ox 97 09/11 0842 B/P 118/64 09/11 0842 B/P Mean 82 09/11 842 O2 Delivery Room air 09/11 842 Temp 36.7 09/11 842 Pulse 79 09/11 842 Resp 14 09/11 842 Last Documented: Result Date Time Pulse Ox 97 09/11 0842 B/P 118/64 09/11 842 B/P Mean 82 09/11 842 O2 Delivery Room air 09/11 842 Temp 36.7 09/11 842 Pulse 79 09/11 842 Resp 14 09/11 842 Review of Vital Signs Reviewed Focused PE General/Const General/Const Awake, Alert, No acute distress, Not toxic appearing Ears/Nose/Throat Ears/Nose/Throat Mucous membranes moist, Pharynx NL Pharynx/Tonsils/Uvula Negative: Pharyngeal erythema, Tonsillar erythema R, Tonsillar erythema L, Tonsillar exudate R, Tonsillar exudate L, Tonsillar swelling R, Tonsillar swelling L. MS Neck Neck No meningismus, Full range of motion Resp/Chest Respiratory/Chest Breath sounds NL, Breath sounds = bilat, No respiratory distress Cardiovascular Cardiovascular Heart rate NL, Regular rhythm, Heart sounds NL Abdomen/GI Abdomen/GI Soft, Non-tender, No guarding Re-Evaluation MDM Free Text MDM Notes Free Text MDM Notes 32-year-old female with URI symptoms. Patient nontoxic-appearing. Discharged home instructions for symptomatic control, return precautions, PCP follow-up. Patient Discharge Departure Vital Signs/Condition Vital Signs First Documented: Result Date Time Pulse Ox 97 09/11 842 B/P 118/64 09/11 842 B/P Mean 82 09/11 842 O2 Delivery Room air 09/11 842 Temp 36.7 09/11 842 Pulse 79 09/11 842 Resp 14 09/11 842 Last Documented: Result Date Time Pulse Ox 97 09/11 842 B/P 118/64 09/11 842 B/P Mean 82 09/11 842 O2 Delivery Room air 09/11 842 Temp 36.7 09/11 842 Pulse 79 09/11 842 Resp 14 09/11 842 All vital signs available at the time of this entry have been reviewed. Clinical Impression Clinical Impression Primary Impression: Viral upper respiratory tract infection with cough Secondary Impressions: Viral syndrome Disposition Decision Discharge )( Discharged to Home Yes )( Time 0915 )( Date 09/11/22 Discharge/Care Plan Counseled Regarding Diagnosis, Need for follow-up, When to return to ED Patient Instructions ED URI, Viral, No Abx (Adult), ED Viral Syndrome (Adult) Additional Instructions Need to stay home from work until 24 hours without fever (without taking fever- reducing medication). Referrals Provider Group: PRIMARY CARE Follow-Up: 2-3 Days Departure Forms WORK/SCHOOL EXCUSE VARIABLE May return to work/school 09/15/22 Discharge Note I have spoken with the patient and/or caregivers. I have explained the patient's condition, diagnoses and treatment plan based on the information available to me at this time. I have answered the patient's and/or caregiver's questions and addressed any concerns. The patient and/or caregivers have as good an understanding of the patient's diagnosis, condition and treatment plan as can be expected at this point. The vital signs have been stable. The patient's condition is stable and appropriate for discharge from the emergency department. The patient will pursue further outpatient evaluation with the primary care physician or other designated or consulting physician as outlined in the discharge instructions. The patient and/or caregivers are agreeable to this plan of care and follow-up instructions have been explained in detail. The patient and/or caregivers have received these instructions in written format and have expressed an understanding of the discharge instructions. The patient and/or caregivers are aware that any significant change in condition or worsening of symptoms should prompt an immediate return to this or the closest emergency department or a call to 911. at 0941 [facility] #:[id number] END OF REPORT [facility] 2022-02-21 12:54:00 [facility] ([facility]) EMERGENCY PROVIDER REPORT REPORT#:[id number] REPORT STATUS: Signed DATE:02/21/22 TIME: 1253 PATIENT: ZURDO HANKINS UNIT #: [id number] ROOM/BED: AGE: 32 SEX: F PCP PHYS: No Primary or Family Physician SERVICE AUTHOR: Dewey Priest MD * ALL edits or amendments must be made on the electronic/computer document * HPI-Syncope General Confirmed Patient Yes Patient Type New patient Initial Greet Date/Time 02/21/22 1243 Presentation Chief Complaint Almost passed out Onset of Sx (Nursing) Date: 02/21/22 Last Known Well Time 1255 Hx Obtained From Patient )( Onset Occurred Minutes ago Symptom Duration Brief Free Text HPI Notes Free Text HPI Notes 32-year-old female patient with no significant past medical or surgical history reports to the [facility] emergency department in [place], [place] via POV complaining of 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 Patient reports that she was sweating, became nauseated with some abdominal cramping and then feels as though she nearly passed out. Patient reports she did not pass out. Patient reports that she was sent home to get checked out by medical provider. Patient seen immediately upon arrival is alert and oriented x3 and is in no apparent distress. Risk-Syncope Risk Stratification )( Coronary Artery Disease Risk factors reviewed )( Thoracic Aortic Dissection Risk factors reviewed Subarachnoid Hemorrhage Risk factors reviewed Review of Systems ROS Statements All systems rev neg except as marked. Focused Review of Systems Constitutional Reports: Weakness - generalized. GI Reports: Abdominal pain, Nausea. Skin Reports: Diaphoresis. Neurologic Reports: Syncope (near syncope). Past Medical History - Adult Stated Complaint HEAT RELATED SICKNESS Allergies Coded Allergies: No Known Allergies (11/29/14) Home Medications Active Scripts KETOROLAC (TORADOL) 10 MG PO Q6H PRN PRN PAIN KETOROLAC (TORADOL) 10 MG PO Q6H PRN PRN PAIN #20 TABS Prov: 05/27/21 DME - NEBULIZER (NEBULIZER) EACH [facility] [place] ASDIR DME - NEBULIZER (NEBULIZER) EACH [facility] [place] ASDIR #1 Prov: 10/25/21 ALBUTEROL/IPRATROPIUM (DUONEB 3-0.5 MG/3ML) 3 ML NEB RTQ4H PRN PRN SHORTNESS OF BREATH/WHEEZING ALBUTEROL/IPRATROPIUM (DUONEB 3-0.5 MG/3ML) 3 ML NEB RTQ4H PRN PRN SHORTNESS OF BREATH/WHEEZING #90 ML Prov: 10/25/21 ALBUTEROL (PROAIR HFA 90 MCG/ACT 8.5 GM) 2 PUFF INH RTQ4H PRN PRN DYSPNEA/ WHEEZING ALBUTEROL (PROAIR HFA 90 MCG/ACT 8.5 GM) 2 PUFF INH RTQ4H PRN PRN DYSPNEA/ WHEEZING #8.5 GM Prov: 10/25/21 PSEUDOEPH/LORATADINE ER (CLARITIN D 120/5 MG 12 HR) 1 TAB PO BID PRN PRN CONGESTION/COLD SYMPTOMS PSEUDOEPH/LORATADINE ER (CLARITIN D 120/5 MG 12 HR) 1 TAB PO BID PRN PRN CONGESTION/COLD SYMPTOMS #15 TABS Prov: 10/25/21 BENZONATATE (TESSALON) 100 MG PO Q8H PRN PRN COUGH BENZONATATE (TESSALON) 100 MG PO Q8H PRN PRN COUGH #30 CAPS Prov: 10/25/21 ONDANSETRON ODT (ZOFRAN ODT) 4 MG PO Q6H PRN PRN NAUSEA/VOMITING ONDANSETRON ODT (ZOFRAN ODT) 4 MG PO Q6H PRN PRN NAUSEA/VOMITING #15 TABS Prov: 10/25/21 DICYCLOMINE (BENTYL) 10 MG PO Q6H PRN PRN ABDOMINAL PAIN/CRAMPING DICYCLOMINE (BENTYL) 10 MG PO Q6H PRN PRN ABDOMINAL PAIN/CRAMPING #30 CAPS Prov: 10/25/21 NAPROXEN (NAPROSYN) 500 MG PO BID PRN PRN PAIN NAPROXEN (NAPROSYN) 500 MG PO BID PRN PRN PAIN #15 TABS Prov: 10/25/21 Past Medical History: Reports: GERD/gastritis (GERD), Hypertension, Dyslipidemia. Denies: Anemia, Congestive heart failure, COPD, Coronary artery disease, Diabetes mellitus, Seizure disorder, Transient ischemic attack. Additional Medical History Anxiety Past Surgical History: Reports: . Alcohol Use Denies EtOH use Drug Use Denies recreational drugs Other Social History Local resident, Good social support Physical Exam Vital Signs Vital Signs First Documented: Result Date Time Pulse Ox 99 02/21 1259 B/P 114/57 02/21 1259 B/P Mean 76 02/21 1259 O2 Delivery Room air 02/21 1259 Temp 36.8 02/21 1259 Pulse 81 02/21 1259 Resp 16 02/21 1259 Last Documented: Result Date Time Pulse Ox 98 02/21 1500 B/P 115/58 02/21 1500 B/P Mean 77 02/21 1500 O2 Delivery Room air 02/21 1500 Pulse 78 02/21 1500 Resp 16 02/21 1500 Temp 36.8 02/21 1259 Review of Vital Signs Reviewed Focused PE General/Const General/Const Awake, Alert, Well appearing MS Head Head Normocephalic Eyes Eyes PERRL, EOMI, Conjunctiva NL Ears/Nose/Throat Ears/Nose/Throat Airway patent, Mucous membranes moist, Pharynx NL MS Neck Neck Supple, Full range of motion, No swelling, Non-tender Resp/Chest Respiratory/Chest Breath sounds NL, Breath sounds = bilat, No respiratory distress, No rales, No rhonchi, No wheezing Cardiovascular Cardiovascular Heart rate NL, Regular rhythm, Heart sounds NL, No murmurs, Cap refill not delayed, Peripheral circulation NL Abdomen/GI Abdomen/GI Soft, Non-tender, No guarding, No rebound MS Lower Extrem Lower Ext/Pelvis/MS Inspection NL, No swelling, Non-tender, No erythema, No deformity, Neurologic intact, Vascular intact, No edema Skin Skin Color NL, Warm, Dry, Turgor NL Neurologic Neurologic Oriented X3, Speech NL, No motor deficits, No sensory deficits, CN II - XII intact, Cerebellar NL Psychiatric Psychiatric Affect NL, Mood NL, Cognitive function NL, Thought content NL Interpretation Diagnostics Lab Results Interpretation Results Laboratory Tests 02/21/22 1254: [Embedded Image Not Available] Laboratory Tests: 02/21 02/21 02/21 02/21 1324 1320 1316 1254 Blood Gas Sodium (134 - 147 MEQ/L) 142 Potassium (3.4 - 5.0 MEQ/L) 3.7 Chloride (100 - 108 MEQ/L) 104 Ionized Calcium (1.12 - 1.32 MMOL/L) 1.17 Chemistry POC Creatinine (0.6 - 1.0 mg/dL) 0.8 POC Glucose (mg/dL) (MG/DL) 111 Total Bilirubin (0.0 - 1.0 MG/DL) 0.5 GGT (5 - 85 UNITS/L) 15 AST (15 - 37 IUnit/L) 16 ALT (30 - 65 IUnit/L) 22 L Total Alk Phosphatase (20 - 125 IUNIT/L) 66 Rapid Troponin I (0.00 - 0.08 ng/mL) 0.00 Total Protein (5.0 - 8.0 GM/DL) 5.7 Albumin (3.4 - 5.0 g/dL) 3.2 L Amylase (25 - 125 UNITS/L) 32 Hematology WBC (3.5 - 11.0 K/uL) 8.4 RBC (3.54 - 5.02 M/uL) 3.94 Hgb (11.0 - 15.0 GM/DL) 13.1 Hct (37.0 - 47.0 %) 36.6 L MCV (81.0 - 99.0 fL) 92.9 MCH (27.0 - 31.0 pg) 33.2 H MCHC (33.0 - 37.0 GM/DL) 35.8 RDW (11.5 - 14.5 %) 13.8 Plt Count (150 - 400 K/mm3) 228 MPV (8.8 - 13.1 FL) 10.3 Neut % (Auto) (40.0 - 76.0 %) 71.2 Lymph % (Auto) (15.0 - 40.0 %) 21.8 Mixed Cells % (Auto) (3.0 - 15.0 %) 7.0 Neut # (Auto) (1.8 - 7.6 K/uL) 6.0 Lymph # (Auto) (1.0 - 3.8 K/uL) 1.8 Mixed Cells # (0.1 - 0.8 k/mm3) 0.6 ECG #1 Interpretation Text/Dict Note EKG performed at 1348 and read by me at 1355. EKG is normal sinus rhythm with a low voltage QRS. There is no acute ischemic changes consistent with a STEMI. The ventricular rate is 73. Re-Evaluation MDM )( Re-Evaluation/Progress #1 Time of Re-Eval 1501 )( Re-Eval Status Improved ED Course Medication(s) Ordered Medication(s) Ordered: Electrolytic, Caloric, And Neil Sig/Michelle Start time Last Medication Dose Route Stop Time Status Admin Sodium Chloride 0 ASDIR PRN 02/21 1300 DCD IV 02/22 1153 Sodium Chloride 1,000 ML X1ED STA 02/21 1253 DC 02/21 IV 02/21 1352 1356 Gastrointestinal Drugs Sig/Michelle Start time Last Medication Dose Route Stop Time Status Admin Ondansetron HCl 4 MG X1ED STA 02/21 1253 DC 02/21 IV 02/21 1254 1357 Patient Discharge Departure Vital Signs/Condition Vital Signs First Documented: Result Date Time Pulse Ox 99 02/21 1259 B/P 114/57 02/21 1259 B/P Mean 76 02/21 1259 O2 Delivery Room air 02/21 1259 Temp 36.8 02/21 1259 Pulse 81 02/21 1259 Resp 16 02/21 1259 Last Documented: Result Date Time Pulse Ox 98 02/21 1500 B/P 115/58 02/21 1500 B/P Mean 77 02/21 1500 O2 Delivery Room air 02/21 1500 Pulse 78 02/21 1500 Resp 16 02/21 1500 Temp 36.8 02/21 1259 All vital signs available at the time of this entry have been reviewed. Clinical Impression Clinical Impression Primary Impression: Heat exhaustion Secondary Impressions: Near syncope Disposition Decision Discharge )( Discharged to Home Yes )( Time 1503 )( Date 02/21/22 Discharge/Care Plan Counseled Regarding Diagnosis, Lab results, Prescriptions, Need for follow-up, When to return to ED (Auto) Prescriptions Current Visit Scripts ALBUTEROL (PROAIR HFA 90 MCG/ACT 8.5 GM) 2 PUFF INH RTQ4H PRN PRN DYSPNEA/ WHEEZING ALBUTEROL (PROAIR HFA 90 MCG/ACT 8.5 GM) 2 PUFF INH RTQ4H PRN PRN DYSPNEA/ WHEEZING #8.5 GM ONDANSETRON ODT (ZOFRAN ODT) 4 MG PO Q6H PRN PRN NAUSEA/VOMITING ONDANSETRON ODT (ZOFRAN ODT) 4 MG PO Q6H PRN PRN NAUSEA/VOMITING #15 TABS Patient Instructions ED Heat Exhaustion, ED Near-Fainting, Uncertain Cause at 2155 RPT #:[id number] END OF REPORT [facility] 2021-10-25 16:24:00 [facility] ([facility] EMERGENCY PROVIDER REPORT REPORT#:[id number] REPORT STATUS: Signed DATE:10/25/21 TIME: 1624 PATIENT: ZURDO HANKINS UNIT #: [id number] ROOM/BED: AGE: 31 SEX: F PCP PHYS: No Primary or Family Physician SERVICE AUTHOR: Jalil Juan MD * ALL edits or amendments must be made on the electronic/computer document * HPI-URI/Cough/Cold Free Text HPI Notes Free Text HPI Notes 31-year-old female denies chronic past medical history presents with 2 days of sore throat with associated cough and wheezing. Duration 2 days Frequency intermittent context denies trauma modifying no improvement with home observation General Initial Greet Date/Time 10/25/21 1539 Presentation Chief Complaint Cough, productive, Sore throat, Upper resp infection Review of Systems ROS Statements All systems rev neg except as marked. Focused Review of Systems Respiratory Reports: Cough, productive, Shortness of breath, Wheezing. Past Medical History - Adult Stated Complaint 3 DAYS AGO MUCOUS STUCK,SORE THROAT,COUGH Allergies Coded Allergies: No Known Allergies (11/29/14) Home Medications Active Scripts KETOROLAC (TORADOL) 10 MG PO Q6H PRN PRN PAIN KETOROLAC (TORADOL) 10 MG PO Q6H PRN PRN PAIN #20 TABS Prov: 05/27/21 Calculated Suicide Risk (nurs) No risk Past Medical History: Reports: GERD/gastritis (GERD), Hypertension, Dyslipidemia. Denies: Anemia, Congestive heart failure, COPD, Coronary artery disease, Diabetes mellitus, Seizure disorder, Transient ischemic attack. Additional Medical History Anxiety Past Surgical History: Reports: . Alcohol Use Denies EtOH use Drug Use Denies recreational drugs Smoking status: Smoking status for patients 13 years old or older: Current every day smoker Other Social History Local resident, Good social support Physical Exam Vital Signs Vital Signs First Documented: Result Date Time Pulse Ox 99 10/25 1541 B/P 124/73 10/25 1541 B/P Mean 90 10/25 1541 O2 Delivery Room air 10/25 1541 Temp 37.1 10/25 1541 Pulse 76 10/25 1541 Resp 18 10/25 1541 Last Documented: Result Date Time Pulse Ox 99 10/25 1541 B/P 124/73 10/25 1541 B/P Mean 90 10/25 1541 O2 Delivery Room air 10/25 1541 Temp 37.1 10/25 1541 Pulse 76 10/25 1541 Resp 18 10/25 1541 Review of Vital Signs Reviewed Basic Physical Exam Basic PE HEAD: Atraumatic/NC, EYES: PERRL, conj clear, NECK: Supple, CV: Reg rate rhythm, ABD: Soft/non-tender, EXT: No gross abnormality, SKIN: No rashes, warm/dry, NEURO: alert oriented, NEURO: gross movement NL, PSYCH: NL thought content Focused PE General/Const General/Const Awake, Alert, No acute distress Ears/Nose/Throat Ears/Nose/Throat Atraumatic, Airway patent, Mucous membranes moist, Pharynx NL, No peritonsillar abscess, No pooling of secretions, No trismus Resp/Chest Respiratory/Chest Atraumatic, Breath sounds = bilat, No respiratory distress Wheezing/Retractions Wheezing expiratory, Wheezing mild. Interpretation Diagnostics Lab Results Interpretation Results Laboratory Tests: 10/25 10/25 1606 1603 Serology POC Influenza A Ag (NEGATIVE) NEGATIVE POC Influenza B Ag (NEGATIVE) NEGATIVE Group A Strep Screen (Negative) NEGATIVE Recent Impressions: RADIOLOGY - XR CHEST 2 V 10/25 1610 Report Impression - Status: SIGNED Entered: 10/25/2021 1618 IMPRESSION: No acute cardiopulmonary findings Impression By: Trena - Alexi Olivo M.D. Point of Care Testing Pulse Oximetry Interpretation Interpreted by nh, Pulse oximetry normal Re-Evaluation MDM Re-Evaluation/Progress URI/Flu Adult MDM Note The patient is now resting comfortably, is alert and in no distress. The patient has a normal mental status and is neurologically intact. The patient appears well and is able to tolerate food or fluid by mouth, and there is no significant dehydration. There is no respiratory distress and no signs of systemic toxicity. The history, exam, diagnostic testing (if any) and current condition do not demonstrate an infectious process such as meningitis, severe pneumonia, retropharyngeal abscess, epiglottitis, sepsis or other serious bacterial infection requiring further testing, treatment, consultation, or admission at this time. The vital signs have been stable. The patient's condition is stable and appropriate for discharge. The patient will pursue further outpatient evaluation with the primary care physician or other designated or consulting physician as indicated in the discharge instructions. ED Course Medication(s) Ordered Medication(s) Ordered: Autonomic Drugs Sig/Michelle Start time Last Medication Dose Route Stop Time Status Admin Albuterol Sulfate 2 PUFF X1ED STA 10/25 1549 DC 10/25 INH 10/25 1550 1618 Albuterol/Ipratropium 3 ML X1ED STA 10/25 1542 CAN NEB 10/25 1543 Central Nervous System Agents Sig/Mcihelle Start time Last Medication Dose Route Stop Time Status Admin Acetaminophen 1,000 MG X1ED STA 10/25 1611 DC 10/25 PO 10/25 1612 1619 Differential Diagnosis Differential Diagnosis Allergic reaction, Allergic rhinitis, Asthma exacerbation , Bronchitis, Cough variant asthma, Influenza, Laryngitis, Otitis media R, Otitis media L, Pertussis, Pharyngitis, diphtheria, Pharyngitis, streptococca, Pharyngitis, viral, Pneumonia, Pneumonia, bacterial, Pneumonia, community acq, Rhinitis, allergic, Rhinitis, nonallergic, Seasonal allergy, Sinusitis, Upper resp infection, Viral syndrome Patient Discharge Departure Vital Signs/Condition Vital Signs First Documented: Result Date Time Pulse Ox 99 10/25 1541 B/P 124/73 10/25 1541 B/P Mean 90 10/25 1541 O2 Delivery Room air 10/25 1541 Temp 37.1 10/25 1541 Pulse 76 10/25 1541 Resp 18 10/25 1541 Last Documented: Result Date Time Pulse Ox 99 10/25 1541 B/P 124/73 10/25 1541 B/P Mean 90 10/25 1541 O2 Delivery Room air 10/25 1541 Temp 37.1 10/25 1541 Pulse 76 10/25 1541 Resp 18 10/25 1541 All vital signs available at the time of this entry have been reviewed. Clinical Impression Clinical Impression Primary Impression: URI (upper respiratory infection) Secondary Impressions: Pharyngitis with viral syndrome, Reactive airway disease Disposition Decision Discharge )( Discharged to Home Yes )( Time 1627 )( Date 10/25/21 Discharge/Care Plan (Auto) Prescriptions Current Visit Scripts DME - NEBULIZER (NEBULIZER) EACH [facility] [place] ASD[facility] DME - NEBULIZER (NEBULIZER) EACH [facility] [place] [facility] #1 Nebulizer of Choice ALBUTEROL/IPRATROPIUM (DUONEB 3-0.5 MG/3ML) 3 ML NEB RTQ4H PRN PRN SHORTNESS OF BREATH/WHEEZING ALBUTEROL/IPRATROPIUM (DUONEB 3-0.5 MG/3ML) 3 ML NEB RTQ4H PRN PRN SHORTNESS OF BREATH/WHEEZING #90 ML ALBUTEROL (PROAIR HFA 90 MCG/ACT 8.5 GM) 2 PUFF INH RTQ4H PRN PRN DYSPNEA/ WHEEZING ALBUTEROL (PROAIR HFA 90 MCG/ACT 8.5 GM) 2 PUFF INH RTQ4H PRN PRN DYSPNEA/ WHEEZING #8.5 GM PSEUDOEPH/LORATADINE ER (CLARITIN D 120/5 MG 12 HR) 1 TAB PO BID PRN PRN CONGESTION/COLD SYMPTOMS PSEUDOEPH/LORATADINE ER (CLARITIN D 120/5 MG 12 HR) 1 TAB PO BID PRN PRN CONGESTION/COLD SYMPTOMS #15 TABS BENZONATATE (TESSALON) 100 MG PO Q8H PRN PRN COUGH BENZONATATE (TESSALON) 100 MG PO Q8H PRN PRN COUGH #30 CAPS ONDANSETRON ODT (ZOFRAN ODT) 4 MG PO Q6H PRN PRN NAUSEA/VOMITING ONDANSETRON ODT (ZOFRAN ODT) 4 MG PO Q6H PRN PRN NAUSEA/VOMITING #15 TABS DICYCLOMINE (BENTYL) 10 MG PO Q6H PRN PRN ABDOMINAL PAIN/CRAMPING DICYCLOMINE (BENTYL) 10 MG PO Q6H PRN PRN ABDOMINAL PAIN/CRAMPING #30 CAPS NAPROXEN (NAPROSYN) 500 MG PO BID PRN PRN PAIN NAPROXEN (NAPROSYN) 500 MG PO BID PRN PRN PAIN #15 TABS Patient Instructions ED URI, Viral, No Abx (Adult) Referrals Sumeet Escobar MD: 2-3 Days primary care Discharge Note I have spoken with the patient and/or caregivers. I have explained the patient's condition, diagnoses and treatment plan based on the information available to me at this time. I have answered the patient's and/or caregiver's questions and addressed any concerns. The patient and/or caregivers have as good an understanding of the patient's diagnosis, condition and treatment plan as can be expected at this point. The vital signs have been stable. The patient's condition is stable and appropriate for discharge from the emergency department. The patient will pursue further outpatient evaluation with the primary care physician or other designated or consulting physician as outlined in the discharge instructions. The patient and/or caregivers are agreeable to this plan of care and follow-up instructions have been explained in detail. The patient and/or caregivers have received these instructions in written format and have expressed an understanding of the discharge instructions. The patient and/or caregivers are aware that any significant change in condition or worsening of symptoms should prompt an immediate return to this or the closest emergency department or a call to 911. at 1629 RPT #:[id number] END OF REPORT [facility] 2021-09-09 10:32:00 [facility] ([facility]) EMERGENCY PROVIDER REPORT REPORT#:[id number] REPORT STATUS: Signed DATE:09/09/21 TIME: 103 PATIENT: ZURDO KELLY UNIT #: [id number] ROOM/BED: AGE: 36 SEX: F PCP PHYS: No Primary or Family Physician SERVICE DT: AUTHOR: Jalil Juan MD * ALL edits or amendments must be made on the electronic/computer document * HPI-Back Pain 40 and Over Free Text HPI Notes Free Text HPI Notes 36-year-old female denies chronic past medical history, social history significant for cigarette use, denies substance abuse, presents for 2 days of left lower back pain onset after attempting to get in and out of 's truck which she states is too tall for her and uncomfortable to maneuver into. She denies falls or additional traumatic events. She has not felt any focal weakness or numbness, nor any bowel or bladder incontinence or urinary retention , nor any fever vomiting or signs of systemic illness otherwise. The pain is located in the left paraspinal lumbar region with radiation to the left thigh. Duration 2 days Context using 's truck Frequency constant Modifying worse with movement General Initial Greet Date/Time 09/09/21 1032 Presentation Chief Complaint Pain, back Sudden in Onset? No Risk-Back Pain 40 and Over Risk Stratification )( Abdominal Aortic Aneurysm Risk factors reviewed )( Thoracic Aortic Dissection Risk factors reviewed Review of Systems ROS Statements All systems rev neg except as marked. Focused Review of Systems Musculoskeletal Reports: Back pain. Past Medical History - Adult Stated Complaint BACK PAIN Allergies Coded Allergies: No Known Allergies (09/09/21) Home Medications Reported Medications No Known Home Medications Physical Exam Vital Signs Vital Signs First Documented: Result Date Time Pulse Ox 98 09/09 1032 B/P 118/60 09/092 B/P Mean 79 09/09 1032 O2 Delivery Room air 09/09 1032 Temp 36.9 09/09 1032 Pulse 82 09/09 1032 Resp 18 09/09 1032 Last Documented: Result Date Time Pulse Ox 98 09/09 1032 B/P 118/60 09/09 1032 B/P Mean 79 09/09 1032 O2 Delivery Room air 09/09 1032 Temp 36.9 09/09 1032 Pulse 82 09/09 1032 Resp 18 09/09 1032 Review of Vital Signs Reviewed Basic Physical Exam Basic PE HEAD: Atraumatic/NC, EYES: PERRL, conj clear, ENT: Membranes moist, NECK: Supple, EXT: No gross abnormality, SKIN: No rashes, warm/dry, NEURO: alert oriented, NEURO: gross movement NL, PSYCH: NL thought content Focused PE General/Const General/Const Awake, Alert, No acute distress Resp/Chest Respiratory/Chest Atraumatic, Breath sounds NL, Breath sounds = bilat Cardiovascular Cardiovascular Heart rate NL, Heart sounds NL Abdomen/GI Abdomen/GI Soft MS Back Back Atraumatic Neurologic Neurologic No motor deficits, No sensory deficits Free Text PE Notes Free Text PE Notes No midline spinal tenderness or step-offs. Left paraspinal lumbar tenderness without deformity or discoloration. Positive straight leg raise bilaterally worse with raising the left leg. Intact dorsalis pedis pulses bilaterally, intact range of motion and sensation to bilateral upper and lower extremities. Interpretation Diagnostics Point of Care Testing Pulse Oximetry Interpretation Interpreted by me, Pulse oximetry normal Re-Evaluation MDM ED Course Medication(s) Ordered Medication(s) Ordered: Central Nervous System Agents Sig/Michelle Start time Last Medication Dose Route Stop Time Status Admin Ketorolac 15 MG X1ED STA 09/09 1044 DC Tromethamine IM 09/09 1045 Differential Diagnosis Differential Diagnosis Abdominal aortic aneurysm, , Aortic dissection, Appendicitis, Bowel obstruction, Cauda equina syndrome, Cholangitis, Cholecystitis, Cholelithiasis, Deg osteoarthritis, Degen joint disease, Ectopic , Epidural abscess, Epidural hematoma, Fracture, Hepatitis, Herniated disk, Hydronephrosis, Lumbar strain, Metastasis, Musculoskeletal pain, Neoplasm, Osteomyelitis, Pancreatitis, Pyelonephritis, Sciatica, Spinal mass, Thoracic aortic dissect, Thoracic strain, Ureterolithiasis, Urinary obstruction Patient Discharge Departure Vital Signs/Condition Vital Signs First Documented: Result Date Time Pulse Ox 98 09/09 1032 B/P 118/60 09/09 1032 B/P Mean 79 09/09 1032 O2 Delivery Room air 09/09 1032 Temp 36.9 12 1032 Pulse 82 12 1032 Resp 18 09/09 1032 Last Documented: Result Date Time Pulse Ox 98 09/09 1032 B/P 118/60 09/09 1032 B/P Mean 79 09/09 1032 O2 Delivery Room air 09/09 1032 Temp 36.9 12 1032 Pulse 82 09/09 1032 Resp 18 09/09 1032 All vital signs available at the time of this entry have been reviewed. Clinical Impression Clinical Impression Primary Impression: Lumbar sprain Secondary Impressions: Sciatica Disposition Decision Discharge )( Discharged to Home Yes )( Time 1047 )( Date 09/09/21 Discharge/Care Plan (Auto) Prescriptions Current Visit Scripts LIDOCAINE (LIDODERM 5%) 1 PATCH TRANSDERM DAILY PRN BACK PAIN LIDOCAINE (LIDODERM 5%) 1 PATCH TRANSDERM DAILY PRN BACK PAIN #30 PATCHES tiZANidine (ZANAFLEX) 2 MG PO Q6H PRN PRN BACK PAIN tiZANidine (ZANAFLEX) 2 MG PO Q6H PRN PRN BACK PAIN #30 TABS GABAPENTIN (NEURONTIN) 100 MG PO TID GABAPENTIN (NEURONTIN) 100 MG PO TID #90 CAPS Patient Instructions ED Back Exercises, Lumbar, ED Back Sprain/Strain, ED Sciatica Additional Instructions Please follow-up with your primary doctor within 48 hours. In addition to the prescribed medications you may take Tylenol 650 mg and ibuprofen 600 mg every 6 hours as needed for back pain relief. Return to ER for worsening pain, weakness , numbness, incontinence, or any additional concerns. at 1049 RPT #:[id number] END OF REPORT [facility] 2021-05-27 10:24:00 [facility] ([facility]) EMERGENCY PROVIDER REPORT REPORT#:[id number] REPORT STATUS: Signed DATE:05/27/21 TIME: 1024 PATIENT: ZURDO HANKINS UNIT #: [id number] ROOM/BED: AGE: 31 SEX: F PCP PHYS: No Primary or Family Physician SERVICE AUTHOR: Chelsy Church MD * ALL edits or amendments must be made on the electronic/computer document * HPI-Extremity Prob Lower General Confirmed Patient Yes Initial Greet Date/Time 05/27/21 0944 Presentation Chief Complaint Leg problem R Free Text HPI Notes Free Text HPI Notes 31-year-old female with PMH HLD and anxiety presents with LE pain. Patient reports acute onset of symptoms that began 2 nights ago. She notes she had intense cramping of her R calf, which eventually resolved. However, she has had persistent pain since then. She is concerned as she received her second Pfizer COVID vaccination on 05/23/2021. ROS is positive for fever (max temp of 101 last night) and nausea. The patient has not taken any medicine for her pain. She denies recent travel, recent surgery, hormone use, immobilization, chest pain, shortness of breath, cough, abdominal pain, nausea/vomiting or LE swelling. Review of Systems ROS Statements All systems rev neg except as marked. Past Medical History - Adult Stated Complaint R LEG CRAMPS X 48 HOURS Allergies Coded Allergies: No Known Allergies (11/29/14) Past Medical History: Reports: GERD/gastritis (GERD), Hypertension, Dyslipidemia. Denies: Anemia, Congestive heart failure, COPD, Coronary artery disease, Diabetes mellitus, Seizure disorder, Transient ischemic attack. Additional Medical History Anxiety Past Surgical History: Reports: . Alcohol Use Denies EtOH use Drug Use Denies recreational drugs Smoking status: Smoking status for patients 13 years old or older: Current every day smoker Other Social History Local resident, Good social support Physical Exam Vital Signs Vital Signs First Documented: Result Date Time Pulse Ox 97 05/27 0939 B/P 121/61 05/27 0939 B/P Mean 81 05/27 0939 O2 Delivery Room air 05/27 0939 Temp 36.7 05/27 0939 Pulse 73 05/27 0939 Resp 16 05/27 0939 Last Documented: Result Date Time Pulse Ox 98 05/27 1336 B/P 115/78 05/27 1336 B/P Mean 90 05/27 1336 O2 Delivery Room air 05/27 1336 Temp 36.8 05/27 1336 Pulse 74 05/27 1336 Resp 18 05/27 1336 Review of Vital Signs Reviewed Focused PE General/Const General/Const Awake, Alert, No acute distress Text/Dict Notes Afebrile, sitting comfortably on stretcher in NAD, nontoxic, appears well clinically Resp/Chest Respiratory/Chest Breath sounds NL, No respiratory distress, No rales, No rhonchi, No wheezing Cardiovascular Cardiovascular Heart rate NL, Regular rhythm, Heart sounds NL MS Lower Extrem Text/Dict Notes There is diffuse TTP of the R calf, no palpable cord, no asymmetry MS Ankle/Foot Text/Dict Note See LE exam Skin Skin Warm, Dry Neurologic Neurologic Oriented X3, Speech NL Text/Dict Notes Moves all extremities equally Additional PE MS Head Head Atraumatic, Normocephalic Ears/Nose/Throat Ears/Nose/Throat Airway patent Abdomen/GI Abdomen/GI No distention Psychiatric Psychiatric Affect NL, Mood NL Interpretation Diagnostics Lab Results Interpretation Results Laboratory Tests: 05/27 1010 Blood Gas Sodium (134 - 147 MEQ/L) 138 Potassium (3.4 - 5.0 MEQ/L) 4.1 Chloride (100 - 108 MEQ/L) 101 Ionized Calcium (1.12 - 1.32 MMOL/L) 1.19 Chemistry POC Creatinine (0.6 - 1.0 mg/dL) 0.8 POC Glucose (mg/dL) (MG/DL) 92 Recent Impressions: ULTRASOUND - DUP VEIN UNI/LTD 05/27 123 Report Impression - Status: SIGNED Entered: 05/27/2021 1236 IMPRESSION: No evidence of deep vein thrombosis. Impression By: Callie Pablo D.O. Lab Imaging Statement Laboratory radiographic studies reviewed and considered in the medical decision-making. Point of Care Testing Pulse Oximetry Pulse Ox % 97 On: Room air Interpretation Interpreted by me, Pulse oximetry normal Time 0939 Free Text I D Notes Free Text I D Notes ULTRASOUND - DUP VEIN UNI/LTD 05/27 1231 Report Impression - Status: SIGNED Entered: 05/27/2021 1236 IMPRESSION: No evidence of deep vein thrombosis. Impression By: Callie Pablo D.O. Re-Evaluation MDM Re-Evaluation/Progress Re-Evaluation/Progress Text/Dict Note Patient re-eval, she remains well-appearing. Discussed results and plan to discharge to home with PMD follow-up a prescription for an anti-inflammatory. Patient expressed understanding and agreement with the plan. Time of Re-Eval 1318 ED Course Medication(s) Ordered Medication(s) Ordered: Central Nervous System Agents Sig/Michelle Start time Last Medication Dose Route Stop Time Status Admin Ketorolac 60 MG X1ED STA 05/27 1028 DC 05/27 Tromethamine IM 05/27 1029 1058 Patient Discharge Departure Vital Signs/Condition Vital Signs First Documented: Result Date Time Pulse Ox 97 05/27 0939 B/P 121/61 05/27 0939 B/P Mean 81 05/27 0939 O2 Delivery Room air 05/27 0939 Temp 36.7 05/27 0939 Pulse 73 05/27 0939 Resp 16 05/27 0939 Last Documented: Result Date Time Pulse Ox 98 05/27 1336 B/P 115/78 05/27 1336 B/P Mean 90 05/27 1336 O2 Delivery Room air 05/27 1336 Temp 36.8 05/27 1336 Pulse 74 05/27 1336 Resp 18 05/27 1336 All vital signs available at the time of this entry have been reviewed. Condition Stable Clinical Impression Clinical Impression Primary Impression: Strain of right calf muscle Disposition Decision Discharge )( Discharged to Home Yes )( Time 1319 )( Date 05/27/21 Discharge/Care Plan Counseled Regarding Diagnosis, Imaging studies, Prescriptions, Need for follow- up, When to return to ED (Auto) Prescriptions Current Visit Scripts KETOROLAC (TORADOL) 10 MG PO Q6H PRN PRN PAIN KETOROLAC (TORADOL) 10 MG PO Q6H PRN PRN PAIN #20 TABS Patient Instructions ED Muscle Strain, Extremity Referrals A Primary Care Physician: As Needed You were seen in the ER for your calf pain. While you were here, we gave you pain medication, tested your blood and performed an ultrasound of your leg. Your results showed you do not have a blood clot. Take the prescribed medications as directed. Follow-up with a primary care physician as needed. Return to the ER for any alarming symptoms. at 1434 RPT #:[id number] END OF REPORT [facility] 2019-09-25 17:29:[address] [facility] ([facility]) EMERGENCY PROVIDER REPORT REPORT#:[id number] REPORT STATUS: Signed DATE:09/25/19 TIME: 1728 PATIENT: ZURDO HANKINS UNIT #: [id number] ROOM/BED: AGE: 29 SEX: F PCP PHYS: No Primary or Family Physician SERVICE DT: AUTHOR: Richard Bernal * ALL edits or amendments must be made on the electronic/computer document * HPI-Foot Prob/Inj General Confirmed Patient Yes Initial Greet Date/Time 09/25/191718 Presentation Chief Complaint Toe injury L Hx Obtained From Patient Onset Occurred Today, Just prior to arrival Location: Left Foot Dorsal surface, Toe Context Recent Healthcare No recent doctor visit, No recent hospitalization Similar Sx Previous No Free Text HPI Notes Free Text HPI Notes 29 yo F presents to the ED for a CC of left 2nd toe pain afte dropping jar of jalapenos on her foot which broke. deneis any other injuries. tetanus up to date. Review of Systems ROS Statements All systems rev neg except as marked. Focused Review of Systems Constitutional Denies: Chills, Fatigue, Fever, Lethargy, Malaise, Recent wt loss, Weakness - generalized. Musculoskeletal Reports: Extremity pain. Denies: Back pain, Extremity swelling, Joint pain, Joint swelling, Lumbar pain, Myalgia, Neck pain, Thoracic pain. Skin Reports: Laceration. Denies: Abrasion, Abscess, Burn, Contusion, Diaphoresis, Erythema, Itching, Jaundice, Rash, Swelling, Ulceration. Neurologic Denies: Abnormal movement, Bladder dysfunction, Bowel dysfunction, Change LOC, Confusion, Dizziness, Focal weakness, Generalized weakness, Headache, Lightheaded, Numbness, Problem walking, Seizure, Shaking, Slurred speech, Spinning sensation, Syncope, Tingling, Unable to speak, Vision change. Past Medical History - Adult Stated Complaint LAC TO LEFT TOE Allergies Coded Allergies: No Known Allergies (11/29/14) Home Medications Reported Medications No Known Home Medications Past Medical History: Reports: Hypertension, Dyslipidemia. Denies: Anemia, Congestive heart failure, COPD, Coronary artery disease, Diabetes mellitus, Seizure disorder, Transient ischemic attack. Past Surgical History: Reports: . Alcohol Use Denies EtOH use Drug Use Denies recreational drugs Smoking status for patients 13 years old or older: Current every day smoker Pack years (pk/d)*(yrs): 1 Date last smoked: still smoking Other Social History Local resident, Good social support Physical Exam Vital Signs Vital Signs First Documented: Result Date Time Pulse Ox 97 09/25 1718 B/P 129/78 09/25 1718 B/P Mean 95 09/25 1718 O2 Delivery Room air 09/25 1718 Temp 37.0 09/25 1718 Pulse 96 09/25 1718 Resp 20 09/25 1718 Last Documented: Result Date Time Pulse Ox 97 09/25 1718 B/P 129/78 09/25 1718 B/P Mean 95 09/25 1718 O2 Delivery Room air 09/25 1718 Temp 37.0 09/25 1718 Pulse 96 09/25 1718 Resp 20 09/25 1718 Review of Vital Signs Reviewed Focused PE General/Const General/Const Awake, Alert, Well appearing MS Ankle/Foot Ankle/Foot Full range of motion, No swelling, No erythema, Non-tender, No deformity, Neurologic intact, Vascular intact, No ligamentous injury, Tendon function NL Skin Skin Warm, Dry, Turgor NL, No swelling, 3 cm laceration to dorsal 2nd left toe. Neurologic Neurologic Oriented X3, Speech NL, No motor deficits, No sensory deficits Interpretation Diagnostics Point of Care Testing Pulse Oximetry Pulse Ox % 100 On: Room air Interpretation Interpreted by me, Pulse oximetry normal Time 1732 Procedures Laceration Management #1 Time 1756 Procedure Performed by ED SAMANTHA )( Location of Wound left 2nd toe )( Wound Length (cm) 3 Local Anesthesia Lidocaine 1%, 2 mL, 27g needle Digit Involved 2nd toe L Wound Preparation Betadine, Normal saline Irrigation Copious Foreign Body Explore/Removal Explored for foreign body, None found Repair Skin ___O (3), Prolene Closure Layers 1 Suture Technique Simple Post-Procedure/Complications No complications, Condition improved, Tolerated procedure well, Patient stable Re-Evaluation MDM ED Course Medication(s) Ordered Medication(s) Ordered: Local Anesthetics (Parenteral) Sig/Michelle Start time Last Medication Dose Route Stop Time Status Admin Lidocaine HCl 20 ML X1ED STA 09/25 1729 DC 09/25 INJ 09/25 1730 173 Patient Discharge Departure Vital Signs/Condition Vital Signs First Documented: Result Date Time Pulse Ox 97 09/25 1718 B/P 129/78 09/25 1718 B/P Mean 95 09/25 1718 O2 Delivery Room air 09/25 1718 Temp 37.0 09/25 1718 Pulse 96 09/25 1718 Resp 20 09/25 1718 Last Documented: Result Date Time Pulse Ox 97 09/25 1718 B/P 129/78 09/25 1718 B/P Mean 95 09/25 1718 O2 Delivery Room air 09/25 1718 Temp 37.0 09/25 1718 Pulse 96 09/25 1718 Resp 20 09/25 1718 All vital signs available at the time of this entry have been reviewed. Condition Improved Clinical Impression Clinical Impression Primary Impression: Laceration of second toe, left Disposition Decision Discharge )( Discharged to Home Yes )( Time 1757 )( Date 09/25/19 Discharge/Care Plan Counseled Regarding Diagnosis, Prescriptions, Need for follow-up, When to return to ED Prescriptions keflex, naprosyn Prescriptions Reviewed Risks, Benefits, Alternative treatment at 1758 RPT #:[id number] END OF REPORT [facility] 2019-09-25 17:29:[address] [facility] ([facility]) EMERGENCY PROVIDER REPORT REPORT#:[id number] REPORT STATUS: Signed DATE:09/25/19 TIME: 1728 PATIENT: ZURDO HANKINS UNIT #: [id number] ROOM/BED: AGE: 29 SEX: F PCP PHYS: No Primary or Family Physician SERVICE AUTHOR: Richard Bernal * ALL edits or amendments must be made on the electronic/computer document * Richard Bernal 09/25/19 1729: HPI-Foot Prob/Inj General Confirmed Patient Yes Presentation Chief Complaint Toe injury L Hx Obtained From Patient Onset Occurred Today, Just prior to arrival Location: Left Foot Dorsal surface, Toe Context Recent Healthcare No recent doctor visit, No recent hospitalization Similar Sx Previous No Free Text HPI Notes Free Text HPI Notes 29 yo F presents to the ED for a CC of left 2nd toe pain afte dropping jar of jalapenos on her foot which broke. deneis any other injuries. tetanus up to date. Review of Systems ROS Statements All systems rev neg except as marked. Focused Review of Systems Constitutional Denies: Chills, Fatigue, Fever, Lethargy, Malaise, Recent wt loss, Weakness - generalized. Musculoskeletal Reports: Extremity pain. Denies: Back pain, Extremity swelling, Joint pain, Joint swelling, Lumbar pain, Myalgia, Neck pain, Thoracic pain. Skin Reports: Laceration. Denies: Abrasion, Abscess, Burn, Contusion, Diaphoresis, Erythema, Itching, Jaundice, Rash, Swelling, Ulceration. Neurologic Denies: Abnormal movement, Bladder dysfunction, Bowel dysfunction, Change LOC, Confusion, Dizziness, Focal weakness, Generalized weakness, Headache, Lightheaded, Numbness, Problem walking, Seizure, Shaking, Slurred speech, Spinning sensation, Syncope, Tingling, Unable to speak, Vision change. Past Medical History - Adult Stated Complaint LAC TO LEFT TOE Allergies Coded Allergies: No Known Allergies (11/29/14) Home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 From Patient, Family )( Onset Occurred Days ago (2) Symptom Duration Since onset, Waxes and wanes Location left eye, chest, nose Quality Aching, Painful Radiation Does not radiate Severity: Onset Moderate Severity: Current Moderate Associated with Reports: Back pain. Associated Other Pt denies other symptoms Context Immunization Status General All up to date Free Text HPI Notes Free Text HPI Notes 28 year old female presents to the for a chief complaint of fever, chills, bodyaches, sore throat and left eye redness x 2 days. Patient states her daughter was diagnoseed with strep throat this past weekend. States she is now starting to the same symptoms in addition to left eye draining yellow pus and redness. States bodyaches are at 5 out of 10 and her back is cramping as well. Patient is currently on her menstrual cycle right now. Denies any other symptoms or complaints. Review of Systems ROS Statements All systems rev neg except as marked. Complete sys rev neg except as marked. Focused Review of Systems Constitutional Reports: Chills, Fatigue, Fever. Denies: Lethargy, Malaise, Recent wt loss, Weakness - generalized. Eyes Reports: Discharge L, Eye pain L, Redness L. Ears/Nose/Throat Reports: Nasal congestion, Sore throat, Throat pain. Respiratory Reports: Cough, non-productive. Denies: Cough, productive, Dyspnea on exertion, Hemoptysis, Parox nocturnal dyspnea, Pleuritic pain, Shortness of breath, Wheezing. Cardiovascular Denies: Chest pain, Dyspnea on exertion, Edema, Orthopnea, Palpitations, Parox nocturnal dyspnea, Syncope. GI Denies: Abdominal pain, Anorexia, Belching, Bloody/tarry stool, Constipation, Diarrhea, Dysphagia, Hematemesis, Hematochezia, Mucousy stool, Melena, Nausea, Rectal pain, Vomiting. Female Denies: Dysuria, Flank pain, Hematuria, Incontinence, Nocturia, Pelvic pain, , Urinary frequency, Urinary urgency, Urination decreased, Urination increased, Vaginal bleeding - abnl, Vaginal discharge. Musculoskeletal Reports: Back pain, Myalgia. Denies: Extremity pain, Extremity swelling, Joint pain, Joint swelling, Lumbar pain, Neck pain, Thoracic pain. Hematologic Denies: Adenopathy, Bleeding, Bruising, Petechiae. Skin Denies: Abrasion, Abscess, Burn, Contusion, Diaphoresis, Erythema, Itching, Jaundice, Laceration, Rash, Swelling, Ulceration. Neurologic Denies: Abnormal movement, Bladder dysfunction, Bowel dysfunction, Change LOC, Confusion, Dizziness, Focal weakness, Generalized weakness, Headache, Lightheaded, Numbness, Problem walking, Seizure, Shaking, Slurred speech, Spinning sensation, Syncope, Tingling, Unable to speak, Vision change. Past Medical History - Adult Stated Complaint PINK EYE, FLU LIKE SYMPTOMS Allergies Coded Allergies: No Known Allergies (11/29/14) Review of Nursing Notes Rev avail, and agree Pt reports no significant: Past medical history, Past surgical history, Family history, Social history Past Medical History: Reports: Hypertension. Denies: Diabetes mellitus (high-risk for DM ). Alcohol Use Denies EtOH use Drug Use Denies recreational drugs Smoking status for patients 13 years old or older: Current every day smoker Pack years (pk/d)*(yrs): 1 Other Social History Local resident Physical Exam Vital Signs Vital Signs First Documented: Result Date Time Pulse Ox 100 12/02 1505 B/P 136/60 12/02 1505 B/P Mean 85 12/02 1505 O2 Delivery Room air 12/02 1505 Temp 99.0 12/02 1505 Pulse 91 12/02 1505 Resp 18 12/02 1505 Last Documented: Result Date Time Pulse Ox 100 12/02 1645 B/P 117/62 12/02 1645 B/P Mean 80 12/02 1645 O2 Delivery Room air 12/02 1645 Temp 98.3 12/02 1645 Pulse 84 12/02 1645 Resp 18 12/02 1645 Review of Vital Signs Reviewed Basic Physical Exam Basic PE HEAD: Atraumatic/NC, EYES: PERRL, conj clear, ENT: Membranes moist, ABD : Soft/non-tender, EXT: No gross abnormality, PSYCH: NL thought content Focused PE General/Const General/Const Awake, Alert MS Head Head Atraumatic, Normocephalic Eyes Text/Dict Notes left eye drainage- yellow Ears/Nose/Throat Pharynx/Tonsils/Uvula Pharyngeal erythema, Tonsillar erythema R, Tonsillar erythema L, Tonsillar exudate R. Negative: Tonsillar exudate L, Tonsillar swelling R, Tonsillar swelling L, Peritonsil abscess R, Peritonsil abscess L, Trismus present, Epiglottis enlarged, Epiglottis erythematous, Uvula deviated R, Uvula deviated L , Uvula edematous, Uvula enlarged, Uvula erythematous. MS Neck Neck Atraumatic, Supple, No meningismus, Full range of motion Resp/Chest Respiratory/Chest Atraumatic, Breath sounds NL, Breath sounds = bilat, No respiratory distress Cardiovascular Cardiovascular Heart rate NL, Regular rhythm, Heart sounds NL, No murmurs Abdomen/GI Abdomen/GI Atraumatic, Soft, Non-tender, McBurney's non-tender MS Back Back Atraumatic, Inspection NL Lymphatic Lymphatic No gross adenopathy Skin Skin Atraumatic, Color NL, No rash, Warm Neurologic Neurologic Oriented X3, Speech NL, No motor deficits, No sensory deficits Interpretation Diagnostics Lab Results Interpretation Results Microbiology: Date/Time Procedure - Status Source Growth 12/02 1554 Group A Streptococcus Screen (DEBRA) - COMP THROAT 12/02 1554 Streptococcus Culture - COMP THROAT 12/02 1554 Influenza Virus Type B Antigen - COMP NASOPHARG 12/02 1554 Influenza Virus Type A Antigen - COMP NASOPHARG Lab Imaging Statement Laboratory radiographic studies reviewed and considered in the medical decision-making. Point of Care Testing Pulse Oximetry Pulse Ox % 100 On: Room air Interpretation Interpreted by me, Pulse oximetry normal Time 1505 Re-Evaluation MDM Re-Evaluation/Progress Fever Adult MDM Note The patient is resting comfortably and feels better, is alert and in no distress. On re-examination the patient does not appear toxic and has no meningeal signs, and there is no intractable vomiting, no respiratory distress and no apparent pain. Based on the history, exam, diagnostic testing (if any) and reassessment, the patient has no signs of meningitis, significant pneumonia, pyelonephritis, systemic immune response syndrome, sepsis or other acute serious bacterial infections, or other significant pathology to warrant further testing, continued ED treatment, admission or specialist evaluation. The patient's vital signs have been stable. The patient's condition is stable and is appropriate for discharge. The patient or caregiver will pursue further outpatient evaluation with the primary care physician or other designated or consulting physician as indicated in the discharge instructions. Tissue Perfusion Reassessment Patient tissue perfusion reassessment completed. ED Course Medication(s) Ordered Medication(s) Ordered: Central Nervous System Agents Sig/Michelle Start time Last Medication Dose Route Stop Time Status Admin Acetaminophen 1,000 MG X1ED STA 12/02 1539 DC 12/02 PO 12/02 1540 1558 Ibuprofen 800 MG X1ED STA 12/02 1537 CAN PO 12/02 1538 Patient Discharge Departure Vital Signs/Condition Vital Signs First Documented: Result Date Time Pulse Ox 100 12/02 1505 B/P 136/60 12/02 1505 B/P Mean 85 12/02 1505 O2 Delivery Room air 12/02 1505 Temp 99.0 12/02 1505 Pulse 91 12/02 1505 Resp 18 12/02 1505 Last Documented: Result Date Time Pulse Ox 100 12/02 1645 B/P 117/62 12/02 1645 B/P Mean 80 12/02 1645 O2 Delivery Room air 12/02 1645 Temp 98.3 12/02 1645 Pulse 84 12/02 1645 Resp 18 12/02 1645 All vital signs available at the time of this entry have been reviewed. Condition Improved, Stable Clinical Impression Clinical Impression Primary Impression: Conjunctivitis, left eye Secondary Impressions: Strep pharyngitis Time of Impression 1641 Disposition Decision Discharge )( Discharged to Home Yes )( Time 164 )( Date 12/02/18 Discharge/Care Plan Counseled Regarding Diagnosis, Prescriptions, Need for follow-up, When to return to ED Prescriptions Reviewed Risks, Benefits, Alternative treatment Jaylen Cooper 12/09/18 0716: HPI-Fever General Initial Greet Date/Time 12/02/18 1511 Physical Exam Vital Signs Vital Signs Interpretation Diagnostics Lab Results Interpretation Results Patient Discharge Departure Vital Signs/Condition Vital Signs Supervising Physician Note MidLv Saw Pt Alone I have reviewed the PA/MAGICIAN HELPER's note and plan of care. I was available for consultation as needed at all times during the patient's visit in the emergency department. I agree with the clinical impression, plan and disposition. at 0042 at 0716 RPT #: [id number] [facility]
[2025-01-10] MEDS ORDERED: AZITHROMYCIN 250 MG TAB ONE (11:03)
--- NOTE | 2025-01-10 11:03 | ER ---
Nurse's Notes [facility] Name: Rere Rouse Age: 34 yrs Sex: Female : 1990 Arrival Date: 01/10/2025 Time: 10:14 Bed 8 Private MD: Diagnosis: Acute upper respiratory infection, unspecified;Tobacco abuse counseling;Tobacco use Presentation: 01/10 10:36 Chief complaint: Patient states: Cough, sore throat, R ear pain, diarrhea for 3-4 days. ll1 Coronavirus screen: Client denies travel out of the [place] in the last 14 days. congestion, cough unrelated to allergies. Ebola Screen: Patient denies travel to an Ebola-affected area in the 21 days before illness onset. Initial Sepsis Screen: Does the patient meet any 2 criteria? No. Patient's initial sepsis screen is negative. Does the patient have a suspected source of infection? No. Patient's initial sepsis screen is negative. Risk Assessment: Do you want to hurt yourself or someone else? Patient reports no desire to harm self or others. Onset of symptoms was January 06, 2025. 10:36 Method Of Arrival: Ambulatory ll1 10:36 Acuity: ROBER 4 ll1 Triage Assessment: 10:36 General: Appears uncomfortable, Behavior is calm, cooperative, appropriate for age, ll1 Reports fatigue for. Pain: Complains of pain in right ear Quality of pain is described as aching. EENT: Reports nasal congestion pain in right ear and left ear. Respiratory: Reports cough that is. GI: Reports diarrhea. 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 - Infectious Disease History:: Denies. - Social history:: Smoking status: Patient denies any tobacco usage or history of. Screenin:17 [facility] ED Fall Risk Assessment (Adult) History of falling in the last 3 months, ll1 including since admission No falls in past 3 months (0 pts) Confusion or Disorientation No (0 pts) Intoxicated or Sedated No (0 pts) Impaired Gait No (0 pts) Mobility Assist Device Used No (0 pt) Altered Elimination No (0 pt) Score/Fall Risk Level 0 - 2 = Low Risk Maintained a safe environment, Hourly rounding (assess needs \T\ fall precautionary measures) done. Abuse screen: Denies threats or abuse. Nutritional screening: No deficits noted. Tuberculosis screening: No symptoms or risk factors identified. Assessment: 11:17 Reassessment: No changes from previously documented assessment. Patient and/or family ll1 updated on plan of care and expected duration. Pain level reassessed. Patient is alert, oriented x 3, equal unlabored respirations, skin warm/dry/pink. Vital Signs: 10:38 Pulse 66; Resp 18; Temp 98.6(O); Pulse Ox 100% on R/A; Weight 107.5 kg; Height 5 ft. 4 ll1 in. ; Pain 8/10; 10:48 BP 112 / 56; ll1 10:38 Body Mass Index 40.68 (107.50 kg, 162.56 cm) ll1 10:38 Pain Scale: Adult ll1 ED Course: 10:19 Patient arrived in ED. cj3 10:20 César Gomez MD is Attending Physician. [facility] 10:31 Arm band placed on Patient placed in an exam room, on a stretcher. ll1 10:36 Dee Panda, KAYY is Primary Nurse. ll1 10:37 Triage completed. ll1 11:17 Patient has correct armband on for positive identification. Provided Education on: ll1 finish all prescribed antibiotics. 11:17 No provider procedures requiring assistance completed. Patient did not have IV access ll1 during this emergency room visit. Administered Medications: 11:05 Drug: AZITHromycin PO 500 mg PO once Route: PO; ll1 11:32 Follow up: Response: No adverse reaction ll1 Medication: 11:31 VIS not applicable for this client. ll1 Outcome: 11:03 Discharge ordered by . [facility] 11:17 Patient left the ED. ll1 11:17 Discharged to home ambulatory, ll1 11:17 Condition: stable 11:17 Discharge instructions given to patient, Instructed on discharge instructions, follow up and referral plans. medication usage, Demonstrated understanding of instructions, follow-up care, medications, Prescriptions given X 2, Signatures: César Gomez MD MD cha Lewis, Lynsay, RN RN ll1 Mikaela Scales cj3
--- NOTE | 2025-01-10 11:04 | EDPHYS ---
Physician Documentation [facility] Name: Rere Rouse Age: 34 yrs Sex: Female : 1990 Arrival Date: 01/10/2025 Time: 10:14 Bed 8 Private MD: ESTEFANÍA Physician César Gomez HPI: 01/10 10:55 This 34 yrs old Female presents to ER via Ambulatory with complaints of Flu wu Symptoms, Ear Pain. 10:55 The patient presents with pain, that is acute. The complaints affect the right ear and wu left ear. Modifying factors: The symptoms are alleviated by nothing, the symptoms are aggravated by nothing. 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 - Infectious Disease History:: Denies. - Social history:: Smoking status: Patient denies any tobacco usage or history of. ROS: 10:55 Constitutional: Negative for fever, chills, and weight loss, Eyes: Negative for injury, wu pain, redness, and discharge, Neck: Negative for injury, pain, and swelling, Cardiovascular: Negative for chest pain, palpitations, and edema, Respiratory: Negative for shortness of breath, cough, wheezing, and pleuritic chest pain, Abdomen/GI: Negative for abdominal pain, nausea, vomiting, diarrhea, and constipation, Back: Negative for injury and pain, : Negative for injury, bleeding, discharge, and swelling, MS/Extremity: Negative for injury and deformity, Skin: Negative for injury, rash, and discoloration, Neuro: Negative for headache, weakness, numbness, tingling, and seizure, Psych: Negative for depression, anxiety, suicide ideation, homicidal ideation, and hallucinations, Allergy/Immunology: Negative for hives, rash, and allergies, Endocrine: Negative for neck swelling, polydipsia, polyuria, polyphagia, and marked weight changes, Hematologic/Lymphatic: Negative for swollen nodes, abnormal bleeding, and unusual bruising, 10:55 ENT: Positive for ear pain, Exam: 10:55 Constitutional: This is a well developed, well nourished patient who is awake, alert, wu and in no acute distress. Head/Face: Normocephalic, atraumatic. Eyes: Pupils equal round and reactive to light, extra-ocular motions intact. Lids and lashes normal. Conjunctiva and sclera are non-icteric and not injected. Cornea within normal limits. Periorbital areas with no swelling, redness, or edema. ENT: Nares patent. No nasal discharge, no septal abnormalities noted. Tympanic membranes are normal and external auditory canals are clear. Oropharynx with no redness, swelling, or masses, exudates, or evidence of obstruction, uvula midline. Mucous membranes moist. Neck: Trachea midline, no thyromegaly or masses palpated, and no cervical lymphadenopathy. Supple, full range of motion without nuchal rigidity, or vertebral point tenderness. No Meningismus. Chest/axilla: Normal chest wall appearance and motion. Nontender with no deformity. No lesions are appreciated. Cardiovascular: Regular rate and rhythm with a normal S1 and S2. No gallops, murmurs, or rubs. Normal PMI, no JVD. No pulse deficits. Respiratory: Lungs have equal breath sounds bilaterally, clear to auscultation and percussion. No rales, rhonchi or wheezes noted. No increased work of breathing, no retractions or nasal flaring. Abdomen/GI: Soft, non-tender, with normal bowel sounds. No distension or tympany. No guarding or rebound. No evidence of tenderness throughout. Back: No spinal tenderness. No costovertebral tenderness. Full range of motion. Skin: Warm, dry with normal turgor. Normal color with no rashes, no lesions, and no evidence of cellulitis. MS/ Extremity: Pulses equal, no cyanosis. Neurovascular intact. Full, normal range of motion., bilateral aka Neuro: Awake and alert, GCS 15, oriented to person, place, time, and situation. Cranial nerves II-XII grossly intact. Motor strength 5/5 in all extremities. Sensory grossly intact. Cerebellar exam normal. Normal gait. Psych: Awake, alert, with orientation to person, place and time. Behavior, mood, and affect are within normal limits. Vital Signs: 10:38 Pulse 66; Resp 18; Temp 98.6(O); Pulse Ox 100% on R/A; Weight 107.5 kg; Height 5 ft. 4 ll1 in. ; Pain 8/10; 10:48 BP 112 / 56; ll1 10:38 Body Mass Index 40.68 (107.50 kg, 162.56 cm) ll1 10:38 Pain Scale: Adult ll1 MDM: 10:20 Medical Screening Exam initiated [facility] Administered Medications: 11:05 Drug: AZITHromycin PO 500 mg PO once Route: PO; ll1 11:32 Follow up: Response: No adverse reaction ll1 Disposition Summary: 01/10/25 11:03 Discharge Ordered Notes: Location: Home [facility] Problem: new [facility] Symptoms: have improved [facility] Condition: Stable [facility] Diagnosis - Acute upper respiratory infection, unspecified [facility] - Tobacco abuse counseling [facility] - Tobacco use [facility] Followup: [facility] - With: Private Physician - When: 2 - 3 days - Reason: Recheck today's complaints, Continuance of care, Re-evaluation by your physician Discharge Instructions: - Discharge Summary Sheet [facility] - Steps to Quit Smoking [facility] - Health Risks of Smoking [facility] - Cool Mist Vaporizer [facility] - Cough, Adult, [id number] [facility] - Cough, Adult [facility] Forms: - Medication Reconciliation Form [facility] - Antibiotic Education [facility] - Prescription Opioid Use [facility] - Patient Portal Instructions [facility] - Leadership Thank You Letter [facility] - Work release form ll1 Prescriptions: - Nani-D 12 Hour 60-120 mg Oral Tablet Sustained Release 12 hr - take 1 tablet ORAL route every 12 hours As needed; 20 tablet; Refills: 0, [facility] Product Selection Permitted - Zithromax 500 mg Oral Tablet - take 1 tablet ORAL route once daily for 5 days; 5 tablet; Refills: 0, Product [facility] Selection Permitted Signatures: César Gomez MD MD cha Lewis, Lynsay RN RN ll1
[2025-01-10 11:36] VITALS: BP 112/56; TEMP 98.6; O2SAT 100
== END 2025-01-10 11:17 | disposition home or self-care (01) ==
LOC: ER 10:14
DX: J06.9 Acute upper respiratory infection, unspecified (principal); Z72.0 Tobacco use; Z71.6 Tobacco abuse counseling
CPT/HCPCS: 99283